=== PATIENT | female | born 1950 | race Caucasian/White ===

== ENCOUNTER → 2017-05-06 08:01 | Outpatient (CLI) | payer OTHER, SELFPAY ==
--- NOTE | 2017-05-06 08:04 | RAD_ITS ---
STUDY: X-RAY CHEST REASON FOR EXAM: Female, 66 years old. Shortness of breath and dyspnea TECHNIQUE: PA and lateral views of the chest. COMPARISON: 01/09/2017 FINDINGS: Lungs are adequately inflated. Mild interstitial edema and vascular congestion. There is no demonstrated pleural abnormality. There is mild cardiac enlargement. Normal mediastinum and jyoti. Normal visualized pulmonary arteries. Normal visualized aortic arch and descending thoracic aorta. Normal visualized thoracic spine. Normal visualized ribs, clavicles, and shoulders. There is no demonstrated abnormality of the visualized soft tissue structures of the upper abdomen. RAD/Chest PA and Lateral IMPRESSION: Mild cardiomegaly with interstitial edema Electronically Signed: Louis Velez DO at 8:31 EST Tel , Service support ,
== END ==
PROVIDERS: Family Provider Family Medicine; PCP Family Medicine; Visit Provider Physician Assistant Surgical
DX: R06.02 Shortness of breath (principal)
CPT/HCPCS: 71046

== ENCOUNTER 2017-05-12 11:04 | Observation (INO) | payer OTHER, SELFPAY ==
[2017-05-12] VITALS (9 sets, daily range): BP systolic 121–148; BP diastolic 60–83; PULSE 53–57; RESP 18–21; TEMP 36.6–36.9; O2SAT 92–95; BMI 53.3; BMI 53.4; BMI 52.4
--- NOTE | 2017-05-12 11:30 | EKG12_ITS ---
Test Reason : SOB Blood Pressure : / mmHG Vent. Rate : 050 BPM Atrial Rate : 050 BPM P-R Int : 180 ms QRS Dur : 096 ms QT Int : 636 ms P-R-T Axes : 057 009 009 degrees QTc Int : 579 ms Sinus bradycardia Low voltage QRS Poor R wave progression Nonspecific T wave abnormality Borderline ECG Confirmed by NILO TREJO, TEQUILA ([id number]), features editor KURTIS SWAIN ([id number]) on 05/13/2017 9:54:00 AM Referred By: Joon Navarro Confirmed By:TEQUILA CORCORAN MD
--- NOTE | 2017-05-12 11:31 | RAD_ITS ---
STUDY: X-RAY CHEST REASON FOR EXAM: Female, 66 years old. Dyspnea. Shortness of breath. Edema. TECHNIQUE: Frontal and lateral views of the chest. COMPARISON: May 06, 2017 FINDINGS: There is a mild diffuse interstitial pattern unchanged. Findings are still compatible with mild interstitial edema/congestive failure. There is no demonstrated pleural abnormality. There is marked globular cardiomegaly unchanged. Normal mediastinum and jyoti. Normal visualized pulmonary arteries. Normal visualized aortic arch and descending thoracic aorta. There are diffuse degenerative changes of the visualized thoracic spine. Normal visualized ribs, clavicles, and shoulders. There is no demonstrated abnormality of the visualized soft tissue structures of the upper abdomen. RAD/Chest PA and Lateral IMPRESSION: Stable cardiomegaly with diffuse interstitial pattern compatible with mild interstitial edema/congestive failure. No acute pathology. Electronically Signed: Aidan Zhou MD at 12:31 EST , Service support ,
[2017-05-12 11:49] LABS: Absolute Lymphocyte Count 1.07 X10^3/ul (0.83-4.51); Absolute Neutrophil Count 5.3 X10^3/uL (2.0-7.7); Basophil# 0.01 X10^3/uL; Basophil% 0.1 % (0-1); Eosinophil# 0.12 X10^3/uL; Eosinophils% 1.6 % (0-5); Hematocrit 31.5 % (37-47); Hemoglobin 9.5 g/dl (12.0-15.0); Lymphocyte # 1.07 X10^3/ul (4.0); Lymphocyte % 14.7 % (19-41); Mean Corp Hgb Conc 30.2 g/gl (32-36); Mean Corpuscular Hgb 25.4 pg (27.0-32.0); Mean Corpuscular Volume 84.2 fL (81-99); Mean Platelet Vol. 8.3 fl (6.2-12.0); Monocyte# 0.81 X10^3/uL; Monocyte% 11.1 % (0-10); Neutrophil # 5.25 X10^3/uL (2.7-7.7); Neutrophil % 72.2 % (47-70); Platelet Count 354 K/mm3 (150-450); RBC Distribution Width CV 14.9 % (11.6-14.6); RBC Distribution Width SD 46.1 fl (35.1-43.9); Red Blood Count 3.74 M/mm3 (4.2-5.4); White Blood Count 7.3 K/mm3 (4.4-11.0)
[2017-05-12 11:51] LABS: POSITIVE COUNT NO; POSITIVE DIFFERENTIAL NO; POSITIVE MORPHOLOGY NO
[2017-05-12 12:05] LABS: Anion Gap 7 (5-15); BUN 13 mg/dL (7-18); BUN/Creat Ratio 13.3 RATIO (10-20); Calcium,Total 8.4 mg/dL (8.5-10.1); Chloride 100 mmol/L (98-107); Creatinine, Serum 0.98 mg/dL (0.55-1.02); D-Dimer Quantitative (DVT/PE) 2.56 FEU/ug/m (0.27-0.49); EST Glomerular Filtration Rate 61 mL/min (>60); Est Glom Filt Rate - Afr Amer 73 mL/min (>60); Estimated Creatinine Clearance 50.08 ml/min; Glucose 105 mg/dL (74-106); Potassium 3.2 mmol/L (3.5-5.1); Sodium Level 137 mmol/L (136-145)
--- NOTE | 2017-05-12 12:14 | CT_ITS ---
STUDY: CTA CHEST REASON FOR EXAM: Female, 66 years old. Dyspnea. Atrial fibrillation. Status post cardiac ablation. RADIATION DOSAGE (If Supplied By Facility): CTDIvol = ( 12.25 ) mGy, DLP = ( 639.5 ) mGycm TECHNIQUE: The examination was performed with the intravenous administration of 100 ml of Isovue 370 contrast material. Post-processing of the angiographic images was performed, with multiplanar reformation and 3D reconstruction. Individualized dose optimization techniques were used for this CT. COMPARISON: None. FINDINGS: There is a 6.9 cm x 4.3 cm x 3.5 cm fluid collection in the subcutaneous tissue along the anterior lower aspect of the chest and upper abdomen. Normal enhancement of the main pulmonary artery and right and left pulmonary arteries. Normal enhancement of the bilateral peripheral pulmonary arteries. There is no demonstrated pulmonary embolism. Normal thoracic aorta and visualized great vessels. There is no demonstrated aortic dissection. Moderate sized pericardial effusion. Cardiomegaly. Normal mediastinum. Normal hilar regions. Normal visualized trachea and bronchi. The lungs are well expanded. There are small bilateral pleural effusions left worse than right with the left basilar infiltration. Mild degree of right basilar atelectasis. Normal pleura. Normal chest wall structures. There are degenerative changes of thoracic spine. Moderate sized hiatal hernia. CT/CTA Chest W/WO Contrast IMPRESSION: Bilateral pleural effusions left greater than right with left basilar atelectasis and/or infiltrate. Moderate sized pericardial effusion. Fluid collection in the subcutaneous tissues in the midline overlying the lower chest and upper abdomen most likely from recent procedure. Electronically Signed: Michael Odonnell MD at 13:23 EST Tel [phone], Service support ,
[2017-05-12 12:20] LABS: BNP,B-Type NATRIURETIC PEPTIDE 128.5 pg/mL (0-100)
--- NOTE | 2017-05-12 13:53 | ECHOD_ITS ---
Reason For Study: Dyspnea/SOB Procedure This was a 2D Doppler, Color Flow transthoracic echocardiogram. The study was technically difficult. Due to body habitus. Exam performed portable in ED. Left Ventricle Normal size and thickness. The estimated ejection fraction is 65 %. Stage 2 diastolic dysfunction. No regional wall motion abnormalities noted. Right Ventricle Normal size and thickness. Normal systolic function. Atria The left atrium is severely enlarged. The right atrium is moderately enlarged. Normal atrial septum. Mitral Valve The mitral valve is structurally normal. No prolapse or stenosis seen. Tricuspid Valve Normal tricuspid valve. Mild (1+) tricuspid valve insufficiency. Right ventricular systolic pressure estimated to be 56 mmHg. Moderate pulmonary hypertension. Aortic Valve Normal aortic valve. Trisinus/trileaflet aortic valve. Pulmonic Valve Normal pulmonic valve. Great Vessels Normal aortic root. Pericardium/Pleural Small pericardial effusion. Circumferential effusion. There are no echocardiographic indications of cardiac tamponade. MMode/2D Measurements & Calculations LVIDd: 5.5 cm IVSd: 1.0 cm LVOT diam: 2.2 cm LVIDs: 3.1 cm LVPWd: 0.99 cm LVOT area: 3.8 cm2 RVDd: 3.4 cm FS: 43.3 % Ao root diam: 2.9 cm LAV(MOD-bp): 95.3 ml LA A4 area: 26.7 cm2 LA dimension: 5.8 cm LAV(MOD-bp) Indexed: 40.4 ml/m2 LAV(MOD-sp2): 95.9 ml LAV(MOD-sp4): 95.1 ml RA A4 area: 22.1 cm2 Doppler Measurements & Calculations MV E max kike: 117.6 cm/sec Lat Peak E' Kike: 8.3 cm/sec Med Peak E' Kike: 7.8 cm/sec MV A max kike: 56.7 cm/sec E/E' lat: 14.1 E/E' med: 15.1 MV E/A: 2.1 Ao V2 max: 198.3 cm/sec LV V1 max: 125.4 cm/sec SV(LVOT): 119.5 ml Ao max P.7 mmHg LV V1 max P.3 mmHg Ao V2 mean: 125.9 cm/sec LV V1 mean P.6 mmHg Ao mean P.2 mmHg LV V1 mean: 91.5 cm/sec Ao V2 VTI: 46.3 cm LV V1 VTI: 31.7 cm STEPHEN(I,D): 2.6 cm2 STEPHEN(V,D): 2.4 cm2 PA V2 max: 121.4 cm/sec TR max kike: 343.5 cm/sec TR max P.2 mmHg Interpretation Summary The estimated ejection fraction is 65 %. Stage 2 diastolic dysfunction. The left atrium is severely enlarged. The right atrium is moderately enlarged. Mild (1+) tricuspid valve insufficiency. Right ventricular systolic pressure estimated to be 56 mmHg. Moderate pulmonary hypertension. Small pericardial effusion. Circumferential effusion. There are no echocardiographic indications of cardiac tamponade. Compared to echo report dated 12/22/2015, LV function has remained the same, small circumferential pericardial effusion is now noted, and RVSP has increased from 45 to 56 mm Hg. Ordering Physician: Lonnie Bradford Referring Physician: Joon Navarro Performed By: Nila Castellanos RDCS, RVT
--- NOTE | 2017-05-12 15:30 | ED.VISSUMM ---
- ER Visit Summary Date of Service: 05/12/17 Chief Complaint: Dyspnea, dyspnea on exertion, pedal edema and COPD History of Present Illness: The patient is a 66 F who presents with dyspnea, dyspnea on exertion orthopnea and pedal edema for the past week. She does have history of COPD. She denies fever, chills night sweats. Denies any visual, ocular or auditory symptoms. She denies any rhinorrhea, sore throat or ear pain. She has complained of left-sided chest pain. She also complains of palpitations. She denies abdominal pain, nausea, vomiting or diarrhea. She denies dysuria, frequency, urgency or hematuria. She denies myalgias arthralgias. She does complain of generalized weakness. Past medical history of CHF, hypertension, atrial fibrillation, hiatal hernia with Foley's esophagitis, obstructive sleep apnea, hypothyroidism and obesity with a BMI of 53. She had a cardiac catheterization in February 2017 which she reports is unremarkable. Physical Examination: Patient vitals are remarkable for heart rate of 55. She is tachypnic. She not hypoxic. She is obese. HEENT exam is unremarkable. Lungs reveal rales bilaterally with diminished breath sounds noted bilaterally. Abdomen is soft nontender. She does have edema both lower extremities. Neuro exam is nonfocal. Test Results: EKG reveals a sinus rhythm rate of 50 with low voltage which may be secondary to body habitus. Chest x-ray reveals CHF with bilateral pleural effusions. Because patient had an elevated d-dimer with abrupt onset of shortness of breath a CTA was obtained which reveals bilateral pleural effusions, CHF and pericardial effusion. Because the patient has a pericardial effusion which is not insignificant in size a echo was obtained. Echo reveals minimal pericardial effusion. H&H is 9.5 and 31.5. Potassium 3.2. Emergency Department Course and Treatment: To evaluate patient's dyspnea with history of COPD and abrupt onset of shortness of breath need to be concerned about pulmonary embolus, COPD exacerbation, CHF exacerbation. Treatment Plan: Lasix 40 mg IV push. Case discussed with Dr. Gilliam since he looked at the echo. He will inform Dr. Dewey since Dr. Dewey is her electrical systems drafter. Disposition: Admit to PCU Impression: Line 1. Exacerbation of CHF 2. Bilateral pleural effusion 3. Anasarca 4. Small pericardial effusion 5. History of hypertension 6. History of obstructive sleep apnea 7. History of hypothyroidism 7. Morbid obesity, BMI 53 9. History of anemia chronic illness 10. High risk medication, Xarelto This note was generated with Tippr dictation software. It may contain incorrect words, spelling, and punctuation that were not noted in review of the chart prior to signing ED Disposition - Plan for ED Patient: Chief Complaint: Shortness of Breath Referrals: José Miguel Roy MD [Primary Care Provider] -
[2017-05-12] MEDS: Furosemide 40 MG/4 ML Vial IV ×2 (15:31→21:34)
--- NOTE | 2017-05-12 15:37 | ED.DCSUM_ITS ---
- ER Visit Summary Date of Service: 05/12/17 Chief Complaint: Dyspnea, dyspnea on exertion, pedal edema and COPD History of Present Illness: The patient is a 66 F who presents with dyspnea, dyspnea on exertion orthopnea and pedal edema for the past week. She does have history of COPD. She denies fever, chills night sweats. Denies any visual, ocular or auditory symptoms. She denies any rhinorrhea, sore throat or ear pain. She has complained of left-sided chest pain. She also complains of palpitations. She denies abdominal pain, nausea, vomiting or diarrhea. She denies dysuria, frequency, urgency or hematuria. She denies myalgias arthralgias. She does complain of generalized weakness. Past medical history of CHF, hypertension, atrial fibrillation, hiatal hernia with Foley's esophagitis, obstructive sleep apnea, hypothyroidism and obesity with a BMI of 53. She had a cardiac catheterization in February 2017 which she reports is unremarkable. Physical Examination: Patient vitals are remarkable for heart rate of 55. She is tachypnic. She not hypoxic. She is obese. HEENT exam is unremarkable. Lungs reveal rales bilaterally with diminished breath sounds noted bilaterally. Abdomen is soft nontender. She does have edema both lower extremities. Neuro exam is nonfocal. Test Results: EKG reveals a sinus rhythm rate of 50 with low voltage which may be secondary to body habitus. Chest x-ray reveals CHF with bilateral pleural effusions. Because patient had an elevated d-dimer with abrupt onset of shortness of breath a CTA was obtained which reveals bilateral pleural effusions , CHF and pericardial effusion. Because the patient has a pericardial effusion which is not insignificant in size a echo was obtained. Echo reveals minimal pericardial effusion. H&H is 9.5 and 31.5. Potassium 3.2. Emergency Department Course and Treatment: To evaluate patient's dyspnea with history of COPD and abrupt onset of shortness of breath need to be concerned about pulmonary embolus, COPD exacerbation, CHF exacerbation. Treatment Plan: Lasix 40 mg IV push. Case discussed with Dr. Gilliam since he looked at the echo. He will inform Dr. Dewey since Dr. Dewey is her film writer. Disposition: Admit to PCU Impression: Line 1. Exacerbation of CHF 2. Bilateral pleural effusion 3. Anasarca 4. Small pericardial effusion 5. History of hypertension 6. History of obstructive sleep apnea 7. History of hypothyroidism 7. Morbid obesity, BMI 53 9. History of anemia chronic illness 10. High risk medication, Xarelto This note was generated with Libr[employer] dictation software. It may contain incorrect words, spelling, and punctuation that were not noted in review of the chart prior to signing ED Disposition - Plan for ED Patient: Chief Complaint: Shortness of Breath Referrals: José Miguel Roy MD [Primary Care Provider] -
[2017-05-12] MEDS: Carvedilol 12.5 MG Tablet PO (21:31)
[2017-05-12] MEDS: Rivaroxaban 20 MG Tablet PO (21:31)
[2017-05-12] MEDS: Pantoprazole Sodium 40 MG Tablet PO (21:31)
--- NOTE | 2017-05-12 22:05 | PCM.HP.STD ---
Problem List (1) Shortness of breath Status: Acute History of Present Illness Date of Admission: 05/12/17 Chief Complaint: Shortness of breath The patient is a 66 year old F was seen in the emergency room at [facility] with chief complaint of increased shortness of breath. Patient denied any chest pain, she has had a history of atrial fibrillation in the past and has had an ablation last year, she follows up with Dr. Dewey of cardiology. Patient states that the shortness of breath is been for the last week, it is mainly on exertion. Patient denies any nausea, denies any jaw pain, neck pain, or arm pain. Workup in the emergency room included a chest x-ray which showed interstitial edema or mild CHF, patient's d-dimer was elevated and she had a CTA of her chest performed which showed bilateral pleural effusions left greater than right, a pericardial effusion, and a fluid collection in the subcutaneous tissues of the abdominal wall and lower chest wall area. Emergency room physician contacted cardiology who performed an echocardiogram in the emergency room to assess the pericardial effusion, it was relayed to me from the emergency room doctor that the casting inspector stated the pericardial effusion was not severe. Patient was examined, breath sounds are distant bilaterally but the patient did not appear to be in respiratory distress, she was on room air. I did not ambulate the patient on room air. Patient will be placed into observation status for acute CHF, in reviewing the patient's medical records, patient had a heart catheterization last February which showed her to have a preserved ejection fraction of 60%. Patient will be placed on IV Lasix, I will have's general surgery see her concerning her fluid collection in her abdomen-I am not sure what to make of this. Do not feel it is necessary at this time to have cardiology consult on this patient. Past Medical History Past Medical History (Chronic Problems): Chronic Problems (Last Reviewed 05/06/17 @ 07:59 by Kimberlee Desai) Edema (Chronic) Hypokalemia (Chronic) S/P left atrial appendage ligation (Chronic) 02/25/2017 @ [facility] with Dr. Fierro S/P ablation of atrial fibrillation (Chronic) Convergent ablation 02/25/[address] @ [facility] [address] Fierro; Atrial fibrillation (Chronic) ablation 03/03/2017 Anemia (Chronic) HTN (hypertension) (Chronic) GERD (gastroesophageal reflux disease) (Chronic) Hiatal hernia (Chronic) Foley esophagus (Chronic) Morbid obesity with BMI of 45.0-49.9, adult (Chronic) Allergies Latex, Natural Rubber Adverse Reaction (Intermediate, Verified 05/12/17 11:06) UNKNOWN olmesartan [From Benicar] Adverse Reaction (Verified 05/12/17 11:06) Itching Home Medications: Ambulatory Orders Medication Instructions Recorded Amlodipine [Norvasc] 5 mg PO DAILY 04/21/13 Fluoxetine [Prozac] 20 mg PO DAILY 04/21/13 Levothyroxine [Synthroid] 88 mcg PO DAILY 04/21/13 Pantoprazole Sodium [Protonix] 40 mg PO BID 04/21/13 Rivaroxaban [Xarelto] 20 mg PO QHS 01/18/16 Magnesium Oxide [Mag-Ox 400] 400 mg PO DAILY 01/13/17 amiodarone 200 mg tablet 200 mg PO DAILY 04/04/17 cholecalciferol (vitamin D3) 2,000 2,000 unit PO DAILY 04/04/17 unit capsule furosemide 40 mg tablet 80 mg PO DAILY tab 04/04/17 potassium chloride ER 20 mEq 40 meq PO BID tab 04/04/17 tablet,extended release Carvedilol [Coreg] 12.5 mg PO BID 05/12/17 Furosemide [Lasix] 40 mg PO DINNER 05/12/17 Surgical History: cholecystectomy, herniorrhaphy, hysterectomy, - - x 3. Psychiatric History: No pertinent psych hx BOLT LOADER History: No pertinent BOLT LOADER history Lives: Spouse/ Significant Other Smoking Status: Never smoker Tobacco Use: Non-smoker Alcohol: None Drugs: None - *Family History Maternal History Items: Heart Disease - CHF Paternal History Items: Stroke Review of Systems Constitutional: Reports: Fatigue. Denies: Anorexia, Chills, Fever, Night Sweats, Malaise, Weakness, Weight Change Eyes: Denies: Blurred vision, Cataracts, Conjunctivae Inflammation, Double vision, Drainage HEENT: Denies: Difficulty Swallowing, Dysphasia, Ear Pain, Eye Pain, Hearing Changes, Nasal bleeding, Nasal Congestion, Post Nasal Drip, Sinus Drainage, Sore Throat Cardiovascular: Reports: Edema - Lower leg edema. Denies: Chest Pain, Claudication, Chest Pressure, Chest Tightness, Heaviness, Orthopnea, Palpitations, Paroxysmal Noc. Dyspnea, Syncope Respiratory: Reports: Shortness of Breath, Shortness of breath upon exertion. Denies: Cough, Hemoptysis, Pleuritic Pain, Shortness of breath at rest, Sputum production, Wheezing Gastrointestinal: Denies: Abdominal Pain, Constipation, Diarrhea, Hematemesis, Hematochezia, Nausea, Melena, Vomiting Genitourinary: Denies: Dysuria, Frequency, Hematuria, Hesitancy, Incontinence, Nocturia, Urgency Gynecological: Denies: Breast symptoms Musculoskeletal: Denies: Back Pain, Foot Pain, Hand Pain, Joint Pain, Joint stiffness, Joint swelling, Joint Tenderness, Leg Pain Skin: Denies: Dryness, Pruritis, Rash Neurological: Denies: Blurred vision, Double vision, Change in Speech, Slurred speech, Difficulty swallowing, Focal weakness, Headaches, Incoordination, Numbness, Tingling Psychiatric: Denies: Anxiety, Depression, Homicidal Ideations, Suicidal Ideations Endocrine: Denies: Change in Body Habitus, Heat/ Cold Intolerance, Polydipsia, Polyuria Hematologic/ Lymphatic: Denies: Adenopathy, Anemia, Easy Bruising, Easy Bleeding, Petechiae, Purpura VTE Information - Inpt Only VTE Present on Admission: No VTE Mechan Device Prophylaxis: None VTE Pharm Prophylaxis ordered?: No Reason prophylaxis not ordered:: Medical Contraindication - On Xarelto Patient Problems: Active and Suspected Problems (Last Reviewed 05/06/17 @ 07:59 by Kimberlee Desai) Shortness of breath (Acute) - Physical Exam General: Alert, Oriented x3, Cooperative, No apparent distress, Well developed, Well nourished HEENT: Atraumatic, PERRLA, EOMI, Normocephalic Oral: Moist Mucosa Neck: Supple, No JVD, Negative Carotid Bruits, No Nuchal Rigidity, Trachea Midline, Thyroid Normal Size and Texture Lungs: Clear to auscultation, No rhonchi, No wheeze, No rales, Diminished Cardiovascular: Regular rate, Regular Rhythm, Normal S1, Normal S2, No murmurs, No Ectopic Activity, PMI Normal, No rub noted, No Gallop Abdomen: Bowel Sounds Present, Soft, Non Tender, Non-Distended, Obese, No hernias noted Extremities: No clubbing, Capillary Refill Less than 3 Seconds, Edema - Generalized lower leg edema is noted bilaterally Skin: No rashes, No breakdown Musculoskeletal: No Tenderness to Palpation of Joints or Extremities Neurological: Cranial nerves II-XII grossly intact, Neuro grossly intact, Muscle tone normal, Sensory exam intact to light touch and pain Psych/Mental Status: Normal Affect, Appropriate, Alert and oriented to time, place, person, mood and affect Vital Signs Temp Pulse Resp BP Pulse Ox 98.4 F 56 L 18 142/60 H 93 05/12/17 21:10 05/12/17 21:10 05/12/17 21:10 05/12/17 21:10 05/12/17 21:10 Oxygen Delivery Method Room Air Weight: 138.7 kg Body Mass Index (BMI) 52.4 Intake and Output for Last 24 Hours 05/10/17 05/11/17 05/12/17 23:59 23:59 23:59 Intake Total 240 / 240 Balance 240 / 240 Assessment/Plan Active and Suspected Problems (Last Reviewed 05/06/17 @ 07:59 by Kimberlee Desai) Shortness of breath (Acute) #1 diastolic congestive heart failure-mild, patient will be placed in observation status on PCU, she will be given IV Lasix, chest x-ray will be repeated tomorrow, echocardiogram was obtained in the emergency room and results will be available tomorrow. #2 fluid collection anterior abdomen/ lower chest wall-I am unsure as to what is causing this, general surgery will be consulted, I do not know if it is possible that her Maze procedure performed in February 2017 could have resulted in this fluid collection #3 hypokalemia-patient will be given oral potassium, labs will be rechecked #4 past history of atrial fibrillation-now in sinus rhythm #5 hypertension #6 morbid obesity Code Visit OBSV E&M: 73354 Initial observation care L3
--- NOTE | 2017-05-12 22:08 | HP.PCM_ITS ---
Problem List (1) Shortness of breath Status: Acute History of Present Illness Date of Admission: 05/12/17 Chief Complaint: Shortness of breath The patient is a 66 year old F was seen in the emergency room at [facility] with chief complaint of increased shortness of breath. Patient denied any chest pain, she has had a history of atrial fibrillation in the past and has had an ablation last year, she follows up with Dr. Dewey of cardiology. Patient states that the shortness of breath is been for the last week, it is mainly on exertion. Patient denies any nausea, denies any jaw pain , neck pain, or arm pain. Workup in the emergency room included a chest x-ray which showed interstitial edema or mild CHF, patient's d-dimer was elevated and she had a CTA of her chest performed which showed bilateral pleural effusions left greater than right, a pericardial effusion, and a fluid collection in the subcutaneous tissues of the abdominal wall and lower chest wall area. Emergency room physician contacted cardiology who performed an echocardiogram in the emergency room to assess the pericardial effusion, it was relayed to me from the emergency room doctor that the service tester stated the pericardial effusion was not severe. Patient was examined, breath sounds are distant bilaterally but the patient did not appear to be in respiratory distress, she was on room air. I did not ambulate the patient on room air. Patient will be placed into observation status for acute CHF, in reviewing the patient's medical records, patient had a heart catheterization last February which showed her to have a preserved ejection fraction of 60%. Patient will be placed on IV Lasix, I will have's general surgery see her concerning her fluid collection in her abdomen-I am not sure what to make of this. Do not feel it is necessary at this time to have cardiology consult on this patient. Past Medical History Past Medical History (Chronic Problems): Chronic Problems (Last Reviewed 05/06/17 @ 07:59 by Kimberlee Desai) Edema (Chronic) Hypokalemia (Chronic) S/P left atrial appendage ligation (Chronic) 02/25/2017 @ [facility] with Dr. Fierro S/P ablation of atrial fibrillation (Chronic) Convergent ablation 02/25/[address] @ [facility] [address] Fierro; Atrial fibrillation (Chronic) ablation 03/03/2017 Anemia (Chronic) HTN (hypertension) (Chronic) GERD (gastroesophageal reflux disease) (Chronic) Hiatal hernia (Chronic) Foley esophagus (Chronic) Morbid obesity with BMI of 45.0-49.9, adult (Chronic) Allergies Latex, Natural Rubber Adverse Reaction (Intermediate, Verified 05/12/17 11:06) UNKNOWN olmesartan [From Benicar] Adverse Reaction (Verified 05/12/17 11:06) Itching Home Medications: Ambulatory Orders Medication Instructions Recorded Amlodipine [Norvasc] 5 mg PO DAILY 04/21/13 Fluoxetine [Prozac] 20 mg PO DAILY 04/21/13 Levothyroxine [Synthroid] 88 mcg PO DAILY 04/21/13 Pantoprazole Sodium [Protonix] 40 mg PO BID 04/21/13 Rivaroxaban [Xarelto] 20 mg PO QHS 01/18/16 Magnesium Oxide [Mag-Ox 400] 400 mg PO DAILY 01/13/17 amiodarone 200 mg tablet 200 mg PO DAILY 04/04/17 cholecalciferol (vitamin D3) 2,000 2,000 unit PO DAILY 04/04/17 unit capsule furosemide 40 mg tablet 80 mg PO DAILY tab 04/04/17 potassium chloride ER 20 mEq 40 meq PO BID tab 04/04/17 tablet,extended release Carvedilol [Coreg] 12.5 mg PO BID 05/12/17 Furosemide [Lasix] 40 mg PO DINNER 05/12/17 Surgical History: cholecystectomy, herniorrhaphy, hysterectomy, - - x 3. 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 Denies: Anorexia, Chills, Fever, Night Sweats , Malaise, Weakness, Weight Change Eyes: Denies: Blurred vision, Cataracts, Conjunctivae Inflammation, Double vision, Drainage HEENT: Denies: Difficulty Swallowing, Dysphasia, Ear Pain, Eye Pain, Hearing Changes, Nasal bleeding, Nasal Congestion, Post Nasal Drip, Sinus Drainage, Sore Throat Cardiovascular: Reports: Edema - Lower leg edema. Denies: Chest Pain, Claudication, Chest Pressure, Chest Tightness, Heaviness, Orthopnea, Palpitations, Paroxysmal Noc. Dyspnea, Syncope Respiratory: Reports: Shortness of Breath, Shortness of breath upon exertion. Denies: Cough, Hemoptysis, Pleuritic Pain, Shortness of breath at rest, Sputum production, Wheezing Gastrointestinal: Denies: Abdominal Pain, Constipation, Diarrhea, Hematemesis, Hematochezia, Nausea, Melena, Vomiting Genitourinary: Denies: Dysuria, Frequency, Hematuria, Hesitancy, Incontinence, Nocturia, Urgency Gynecological: Denies: Breast symptoms Musculoskeletal: Denies: Back Pain, Foot Pain, Hand Pain, Joint Pain, Joint stiffness, Joint swelling, Joint Tenderness, Leg Pain Skin: Denies: Dryness, Pruritis, Rash Neurological: Denies: Blurred vision, Double vision, Change in Speech, Slurred speech, Difficulty swallowing, Focal weakness, Headaches, Incoordination, Numbness, Tingling Psychiatric: Denies: Anxiety, Depression, Homicidal Ideations, Suicidal Ideations Endocrine: Denies: Change in Body Habitus, Heat/ Cold Intolerance, Polydipsia, Polyuria Hematologic/ Lymphatic: Denies: Adenopathy, Anemia, Easy Bruising, Easy Bleeding , Petechiae, Purpura VTE Information - Inpt Only VTE Present on Admission: No VTE Mechan Device Prophylaxis: None VTE Pharm Prophylaxis ordered?: No Reason prophylaxis not ordered:: Medical Contraindication - On Xarelto Patient Problems: Active and Suspected Problems (Last Reviewed 05/06/17 @ 07:59 by Kimberlee Desai) Shortness of breath (Acute) - Physical Exam General: Alert, Oriented x3, Cooperative, No apparent distress, Well developed, Well nourished HEENT: Atraumatic, PERRLA, EOMI, Normocephalic Oral: Moist Mucosa Neck: Supple, No JVD, Negative Carotid Bruits, No Nuchal Rigidity, Trachea Midline, Thyroid Normal Size and Texture Lungs: Clear to auscultation, No rhonchi, No wheeze, No rales, Diminished Cardiovascular: Regular rate, Regular Rhythm, Normal S1, Normal S2, No murmurs, No Ectopic Activity, PMI Normal, No rub noted, No Gallop Abdomen: Bowel Sounds Present, Soft, Non Tender, Non-Distended, Obese, No hernias noted Extremities: No clubbing, Capillary Refill Less than 3 Seconds, Edema - Generalized lower leg edema is noted bilaterally Skin: No rashes, No breakdown Musculoskeletal: No Tenderness to Palpation of Joints or Extremities Neurological: Cranial nerves II-XII grossly intact, Neuro grossly intact, Muscle tone normal, Sensory exam intact to light touch and pain Psych/Mental Status: Normal Affect, Appropriate, Alert and oriented to time, place, person, mood and affect Vital Signs Temp Pulse Resp BP Pulse Ox 98.4 F 56 L 18 142/60 H 93 05/12/17 21:10 05/12/17 21:10 05/12/17 21:10 05/12/17 21:10 05/12/17 21:10 Oxygen Delivery Method Room Air Weight: 138.7 kg Body Mass Index (BMI) 52.4 Intake and Output for Last 24 Hours 05/10/17 05/11/17 05/12/17 23:59 23:59 23:59 Intake Total 240 / 240 Balance 240 / 240 Assessment/Plan Active and Suspected Problems (Last Reviewed 05/06/17 @ 07:59 by Kimberlee Desai) Shortness of breath (Acute) #1 diastolic congestive heart failure-mild, patient will be placed in observation status on PCU, she will be given IV Lasix, chest x-ray will be repeated tomorrow, echocardiogram was obtained in the emergency room and results will be available tomorrow. #2 fluid collection anterior abdomen/ lower chest wall-I am unsure as to what is causing this, general surgery will be consulted, I do not know if it is possible that her Maze procedure performed in February 2017 could have resulted in this fluid collection #3 hypokalemia-patient will be given oral potassium, labs will be rechecked #4 past history of atrial fibrillation-now in sinus rhythm #5 hypertension #6 morbid obesity Code Visit OBSV E&M: 62879 Initial observation care L3
[2017-05-13] VITALS (10 sets, daily range): BP systolic 108–160; BP diastolic 44–65; PULSE 56–79; RESP 16–18; TEMP 36.7–37.2; O2SAT 93–95
[2017-05-13] MEDS: Acetaminophen 325 MG Tablet 650 MG PO ×2 (03:25→15:39)
--- NOTE | 2017-05-13 05:55 | RAD_ITS ---
STUDY: X-RAY CHEST REASON FOR EXAM: Female, 66 years old. Shortness of breath. TECHNIQUE: PA and lateral views of the chest. COMPARISON: Comparison is made with prior study dated May 12, 2017. FINDINGS: EKG electrodes are seen. Stable mild degree of increased interstitial markings in both lungs. Stable atelectasis and/or infiltrate in the posterior medial segment of the left lower lobe. There is blunting of both costophrenic angles posteriorly slightly worse on the left side. There is moderate cardiac enlargement. Recent CT scan demonstrated a pericardial effusion. A metallic clip is seen in the region of the left atrium. Normal mediastinum and jyoti. Normal visualized pulmonary arteries. There is atherosclerotic tortuosity of the aortic arch and descending thoracic aorta. There are loss of height of mid dorsal vertebrae. Degenerative changes of the visualized thoracic spine. Normal visualized ribs, clavicles, and shoulders. There is no demonstrated abnormality of the visualized soft tissue structures of the upper abdomen. RAD/Chest PA and Lateral IMPRESSION: Cardiomegaly. Stable increased interstitial markings in both lungs suggest some mild this is unchanged. Electronically Signed: Michael Odonnell MD at 8:43 EST Tel [phone], Service support ,
[2017-05-13 06:07] LABS: Anion Gap 9 (5-15); BUN 12 mg/dL (7-18); BUN/Creat Ratio 12.2 RATIO (10-20); Calcium,Total 8.3 mg/dL (8.5-10.1); Chloride 102 mmol/L (98-107); Creatinine, Serum 0.98 mg/dL (0.55-1.02); EST Glomerular Filtration Rate 60 mL/min (>60); Est Glom Filt Rate - Afr Amer 73 mL/min (>60); Estimated Creatinine Clearance 50.08 ml/min; Glucose 107 mg/dL (74-106); Potassium 3.5 mmol/L (3.5-5.1); Sodium Level 140 mmol/L (136-145)
[2017-05-13] MEDS: 0.9% NaCl Peripheral Flush Adult/Peds IV ×3 (06:48→20:11)
[2017-05-13] MEDS: Levothyroxine 88 MCG Tablet PO (06:48)
[2017-05-13] MEDS: Furosemide 40 MG/4 ML Vial IV ×2 (06:48→17:07)
[2017-05-13] MEDS: Amiodarone 200 MG Tablet PO (09:33)
[2017-05-13] MEDS: Carvedilol 12.5 MG Tablet PO ×2 (09:33→22:23)
[2017-05-13] MEDS: amLODIPine 5 MG Tablet PO (09:34)
[2017-05-13] MEDS: Pantoprazole Sodium 40 MG Tablet PO ×2 (09:34→22:23)
[2017-05-13] MEDS: FLUoxetine 20 MG Capsule PO (09:34)
--- NOTE | 2017-05-13 12:26 | PCM.PN.HOSP ---
Patient Problems: Active and Suspected Problems (Last Reviewed 05/06/17 @ 07:59 by Kimberlee Desai) Shortness of breath (Acute) Vitals/I&O's: Vital Signs Temp Pulse Resp BP Pulse Ox 98.1 F 56 L 18 119/55 L 94 05/13/17 09:10 05/13/17 11:01 05/13/17 09:10 05/13/17 09:10 05/13/17 09:10 Oxygen Delivery Method Room Air Weight: 139 kg Body Mass Index (BMI) 52.4 Intake and Output for Last 24 Hours 05/11/17 05/12/17 05/13/17 23:59 23:59 23:59 Intake Total 720 / 720 240 / 240 Output Total 650 / 650 200 / 200 Balance 70 / 70 40 / 40 Laboratory Results 05/13/17 05:45: Sodium 140, Potassium 3.5, Chloride 102, Carbon Dioxide 29.0, Anion Gap 9, BUN 12, Creatinine 0.98, Estim Creat Clear Calc 50.08, Est GFR (MDRD) Af Amer 73, Est GFR (MDRD) Non-Af 60, BUN/Creatinine Ratio 12.2, Glucose 107 H, Calcium 8.3 L Current Medications Acetaminophen (Tylenol) 650 mg PO Q6H PRN PRN PRN Reason: PAIN Last Admin: 05/13/17 03:25 Dose: 650 mg Amiodarone HCl (Cordarone) 200 mg PO DAILY [facility] Last Admin: 05/13/17 09:33 Dose: 200 mg Amlodipine Besylate (Norvasc) 5 mg PO DAILY [facility] Last Admin: 05/13/17 09:34 Dose: 5 mg Carvedilol (Coreg) 12.5 mg PO BID [facility] Last Admin: 05/13/17 09:33 Dose: 12.5 mg Doxycycline Monohydrate (Doxycycline) 100 mg PO BID [facility] Fluoxetine HCl (Prozac) 20 mg PO DAILY [facility] Last Admin: 05/13/17 09:34 Dose: 20 mg Furosemide (Lasix) 40 mg IV BID@1000,1800 [facility] Levothyroxine Sodium (Synthroid) 88 mcg PO DAILY@0600 [facility] Last Admin: 05/13/17 06:48 Dose: 88 mcg Methylprednisolone (Solu-Medrol) 40 mg IV Q8 [facility] Pantoprazole Sodium (Protonix) 40 mg PO BID [facility] Last Admin: 05/13/17 09:34 Dose: 40 mg Potassium Chloride (K-Dur) 40 meq PO BID [facility] Last Admin: 05/13/17 09:33 Dose: 40 meq Rivaroxaban (Xarelto) 20 mg PO QHS [facility] Last Admin: 05/12/17 21:31 Dose: 20 mg Sodium Chloride () 5 - 30 ml IV UD PRN PRN Reason: SALINE FLUSH Last Admin: 05/13/17 06:48 Dose: 10 ml Assessment/Plan Active and Suspected Problems (Last Reviewed 05/06/17 @ 07:59 by Kimberlee Desai) Shortness of breath (Acute)
--- NOTE | 2017-05-13 14:41 | CHAPLAIN ---
Type of Pastoral Visit _x__ Initial Visit ___ Follow-up Visit ___ On-call Visit ___ General Patient Visit ___ Spiritual Assessment ___ Family Conference ___ Bereavement ___ Rapid Response ___ Code Blue ___ Other (describe below) Pastoral Care Referral From _x__ Patient ___ Family ___ Nurse ___ Physician ___ Vocational Counselor ___ Respiratory Therapy Director ___ Other (describe below) Sacrament/Intervention _x__ Active listening ___ Anointing ___ Methodist ___ Bereavement ___ Communion ___ Angélica exploration ___ ___ Life review ___ Prayer ___ Reconciliation ___ Sacrament of Sick ___ Supportive presence ___ Wedding ___ Other (describe below) Pastoral Comments
--- NOTE | 2017-05-13 16:52 | PCM.PN.HOSP ---
Patient Problems: Active and Suspected Problems (Last Reviewed 05/06/17 @ 07:59 by Kimberlee Desai) Shortness of breath (Acute) Subjective: CC: shortness of breath. 66-year-old female who presented with progressive dyspnea, and showed pulmonary vascular congestion, bilateral pleural effusion as well as well as fluid collection anterior abdomen/ lower chest wall. She is receiving IV Lasix and reports improved dyspnea at rest but is worse with exertion. Vitals/I&O's: Vital Signs Temp Pulse Resp BP Pulse Ox 99.0 F 61 18 136/44 H 93 05/13/17 15:10 05/13/17 15:10 05/13/17 15:10 05/13/17 15:10 05/13/17 15:10 Oxygen Delivery Method Room Air Weight: 139 kg Body Mass Index (BMI) 52.4 Intake and Output for Last 24 Hours 05/11/17 05/12/17 05/13/17 23:59 23:59 23:59 Intake Total 720 / 720 600 / 600 Output Total 650 / 650 1500 / 1500 Balance 70 / 70 -900 / -900 General: Alert, Oriented x3 HEENT: Atraumatic Oral: Moist Mucosa Neck: Supple, No JVD Lungs: Clear to auscultation Cardiovascular: Regular rate, Normal S1, Normal S2 Abdomen: Bowel Sounds Present, Soft, Non Tender Laboratory Results 05/13/17 05:45: Sodium 140, Potassium 3.5, Chloride 102, Carbon Dioxide 29.0, Anion Gap 9, BUN 12, Creatinine 0.98, Estim Creat Clear Calc 50.08, Est GFR (MDRD) Af Amer 73, Est GFR (MDRD) Non-Af 60, BUN/Creatinine Ratio 12.2, Glucose 107 H, Calcium 8.3 L Current Medications Acetaminophen (Tylenol) 650 mg PO Q6H PRN PRN PRN Reason: PAIN Last Admin: 05/13/17 15:39 Dose: 650 mg Amiodarone HCl (Cordarone) 200 mg PO DAILY [facility] Last Admin: 05/13/17 09:33 Dose: 200 mg Amlodipine Besylate (Norvasc) 5 mg PO DAILY [facility] Last Admin: 05/13/17 09:34 Dose: 5 mg Carvedilol (Coreg) 12.5 mg PO BID [facility] Last Admin: 05/13/17 09:33 Dose: 12.5 mg Fluoxetine HCl (Prozac) 20 mg PO DAILY [facility] Last Admin: 05/13/17 09:34 Dose: 20 mg Furosemide (Lasix) 40 mg IV BID@1000,1800 [facility] Levothyroxine Sodium (Synthroid) 88 mcg PO DAILY@0600 [facility] Last Admin: 05/13/17 06:48 Dose: 88 mcg Pantoprazole Sodium (Protonix) 40 mg PO BID [facility] Last Admin: 05/13/17 09:34 Dose: 40 mg Potassium Chloride (K-Dur) 40 meq PO BID [facility] Last Admin: 05/13/17 09:33 Dose: 40 meq Rivaroxaban (Xarelto) 20 mg PO QHS [facility] Last Admin: 05/12/17 21:31 Dose: 20 mg Sodium Chloride () 5 - 30 ml IV UD PRN PRN Reason: SALINE FLUSH Last Admin: 05/13/17 06:48 Dose: 10 ml Assessment/Plan Active and Suspected Problems (Last Reviewed 05/06/17 @ 07:59 by Kimberlee Desai) Shortness of breath (Acute) 1 Dyspnea ; likely due to acute diastolic congestive , continue on IV Lasix. 2. Pericardial effusion; will obtain a limited echocardiogram, the patient wants me to consult Dr. Dewey who is her chiropractic assistant. 3. Fluid collection anterior abdomen/ lower chest wall; likely from her procedure, general surgeon consulted. 4. History of atrial fibrillation status post maze procedure the patient remains in sinus rhythm. 5 morbid obesity; loss recommended. 6. DVT Prophylaxis; the patient is on Xarelto.
--- NOTE | 2017-05-13 16:56 | PN_ITS ---
Patient Problems: Active and Suspected Problems (Last Reviewed 05/06/17 @ 07:59 by Kimberlee Desai) Shortness of breath (Acute) Subjective: CC: shortness of breath. 66-year-old female who presented with progressive dyspnea, and showed pulmonary vascular congestion, bilateral pleural effusion as well as well as fluid collection anterior abdomen/ lower chest wall. She is receiving IV Lasix and reports improved dyspnea at rest but is worse with exertion. Vitals/I&O's: Vital Signs Temp Pulse Resp BP Pulse Ox 99.0 F 61 18 136/44 H 93 05/13/17 15:10 05/13/17 15:10 05/13/17 15:10 05/13/17 15:10 05/13/17 15:10 Oxygen Delivery Method Room Air Weight: 139 kg Body Mass Index (BMI) 52.4 Intake and Output for Last 24 Hours 05/11/17 05/12/17 05/13/17 23:59 23:59 23:59 Intake Total 720 / 720 600 / 600 Output Total 650 / 650 1500 / 1500 Balance 70 / 70 -900 / -900 General: Alert, Oriented x3 HEENT: Atraumatic Oral: Moist Mucosa Neck: Supple, No JVD Lungs: Clear to auscultation Cardiovascular: Regular rate, Normal S1, Normal S2 Abdomen: Bowel Sounds Present, Soft, Non Tender Laboratory Results 05/13/17 05:45: Sodium 140, Potassium 3.5, Chloride 102, Carbon Dioxide 29.0, Anion Gap 9, BUN 12, Creatinine 0.98, Estim Creat Clear Calc 50.08, Est GFR ( MDRD) Af Amer 73, Est GFR (MDRD) Non-Af 60, BUN/Creatinine Ratio 12.2, Glucose 107 H, Calcium 8.3 L Current Medications Acetaminophen (Tylenol) 650 mg PO Q6H PRN PRN PRN Reason: PAIN Last Admin: 05/13/17 15:39 Dose: 650 mg Amiodarone HCl (Cordarone) 200 mg PO DAILY [facility] Last Admin: 05/13/17 09:33 Dose: 200 mg Amlodipine Besylate (Norvasc) 5 mg PO DAILY [facility] Last Admin: 05/13/17 09:34 Dose: 5 mg Carvedilol (Coreg) 12.5 mg PO BID [facility] Last Admin: 05/13/17 09:33 Dose: 12.5 mg Fluoxetine HCl (Prozac) 20 mg PO DAILY [facility] Last Admin: 05/13/17 09:34 Dose: 20 mg Furosemide (Lasix) 40 mg IV BID@1000,1800 [facility] Levothyroxine Sodium (Synthroid) 88 mcg PO DAILY@0600 [facility] Last Admin: 05/13/17 06:48 Dose: 88 mcg Pantoprazole Sodium (Protonix) 40 mg PO BID [facility] Last Admin: 05/13/17 09:34 Dose: 40 mg Potassium Chloride (K-Dur) 40 meq PO BID [facility] Last Admin: 05/13/17 09:33 Dose: 40 meq Rivaroxaban (Xarelto) 20 mg PO QHS [facility] Last Admin: 05/12/17 21:31 Dose: 20 mg Sodium Chloride () 5 - 30 ml IV UD PRN PRN Reason: SALINE FLUSH Last Admin: 05/13/17 06:48 Dose: 10 ml Assessment/Plan Active and Suspected Problems (Last Reviewed 05/06/17 @ 07:59 by Kimberlee Desai) Shortness of breath (Acute) 1 Dyspnea ; likely due to acute diastolic congestive , continue on IV Lasix. 2. Pericardial effusion; will obtain a limited echocardiogram, the patient wants me to consult Dr. Dewey who is her adapted physical education teacher. 3. Fluid collection anterior abdomen/ lower chest wall; likely from her procedure, general surgeon consulted. 4. History of atrial fibrillation status post maze procedure the patient remains in sinus rhythm. 5 morbid obesity; loss recommended. 6. DVT Prophylaxis; the patient is on Xarelto.
--- NOTE | 2017-05-13 17:17 | PCM.CONS.GEN ---
Problem List (1) Shortness of breath Status: Acute (2) Pulmonary edema Status: Acute Qualifiers: Chronicity: acute Qualified Code(s): J81.0 - Acute pulmonary edema (3) S/P left atrial appendage ligation Status: Chronic Comment: 02/25/2017 @ [facility] with Dr. Fierro (4) S/P ablation of atrial fibrillation Status: Chronic Comment: Convergent ablation 02/25/2017 @ [facility] [address] Dr. Fierro; (5) Atrial fibrillation Status: Chronic Qualifiers: Atrial fibrillation type: paroxysmal Qualified Code(s): I48.0 - Paroxysmal atrial fibrillation; I48.0 - Paroxysmal atrial fibrillation; I48.0 - Paroxysmal atrial fibrillation; I48.0 - Paroxysmal atrial fibrillation Comment: ablation 03/03/2017 (6) Foley esophagus Status: Chronic (7) Morbid obesity with BMI of 45.0-49.9, adult Status: Chronic Reason for Consult Date of Consultation: 05/13/17 History of Present Illness: The patient is a 66 year old F review underwent a Maze procedure and left atrial appendage excision at [facility], I understand in February 2017. patient was under [facility] with increasing dyspnea on exertion and chest discomfort. she underwent a CT scan to gram of the chest to rule out pulmonary embolism. The patient was found to have a left pleural effusion. A pericardial effusion and was felt to be a 6 cm fluid collection at the site of her previous midline incision just below her xiphoid. the question posed by the medicine service was-does this collection need to be drained or treated aggressively. In speaking to the patient, she underwent both a vertical subxiphoid incision for access or a Maze procedure and a left lateral mini thoracotomy. She denies redness or swelling at either incision site. She notes no drainage from the subxiphoid incision. She notes no pain in that area. Overall-the patient's complaint is shortness of breath and dyspnea on exertion. She asked me if this collection could be related to her dyspnea on exertion. Given the pericardial effusion, the patient did undergo an echocardiogram which seems demonstrated a smaller effusion. It did not seem to be compressing or causing a pericardial tamponade. I was consulted. my review of the CT scan demonstrates a left pleural effusion and the pericardial effusion. The collection is extra-abdominal. It is located in the subcutaneous fat and is underneath the site of the incision and extends slightly anterior and superior to the xiphoid. There are no air bubbles this collection. It did not appear to be acutely of the pleural space or the pericardial space. It is a relatively double density that makes me feel this is either likely a seroma or a resolving hematoma. The patient has significant past medical history including coronary disease, CVA, atrial fibrillation, morbid obesity Past Medical History Past Medical History (Chronic Problems): Chronic Problems (Last Reviewed 05/06/17 @ 07:59 by Kimberlee Desai) Edema (Chronic) Hypokalemia (Chronic) S/P left atrial appendage ligation (Chronic) 02/25/2017 @ [facility] with Dr. Fierro S/P ablation of atrial fibrillation (Chronic) Convergent ablation 02/25/2017 @ [facility] by Dr. Fierro; Atrial fibrillation (Chronic) ablation 03/03/2017 Anemia (Chronic) HTN (hypertension) (Chronic) GERD (gastroesophageal reflux disease) (Chronic) Hiatal hernia (Chronic) Foley esophagus (Chronic) Morbid obesity with BMI of 45.0-49.9, adult (Chronic) Allergies Latex, Natural Rubber Adverse Reaction (Intermediate, Verified 05/12/17 11:06) UNKNOWN olmesartan [From Benicar] Adverse Reaction (Verified 05/12/17 11:06) Itching Home Medications: Ambulatory Orders Medication Instructions Recorded Amlodipine [Norvasc] 5 mg PO DAILY 04/21/13 Fluoxetine [Prozac] 20 mg PO DAILY 04/21/13 Levothyroxine [Synthroid] 88 mcg PO DAILY 04/21/13 Pantoprazole Sodium [Protonix] 40 mg PO BID 04/21/13 Rivaroxaban [Xarelto] 20 mg PO QHS 01/18/16 Magnesium Oxide [Mag-Ox 400] 400 mg PO DAILY 01/13/17 amiodarone 200 mg tablet 200 mg PO DAILY 04/04/17 cholecalciferol (vitamin D3) 2,000 2,000 unit PO DAILY 04/04/17 unit capsule furosemide 40 mg tablet 80 mg PO DAILY tab 04/04/17 potassium chloride ER 20 mEq 40 meq PO BID tab 04/04/17 tablet,extended release Carvedilol [Coreg] 12.5 mg PO BID 05/12/17 Furosemide [Lasix] 40 mg PO DINNER 05/12/17 Surgical History: cholecystectomy, herniorrhaphy, hysterectomy, - - x 3. 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 Lives: Spouse/ Significant Other Smoking Status: Never smoker Tobacco Use: Non-smoker Alcohol: None Drugs: None - *Family History Maternal History Items: Heart Disease - CHF Paternal History Items: Stroke Review of Systems Constitutional: Reports: Weakness, Fatigue Cardiovascular: Reports: Chest Pain, Chest Pressure Respiratory: Reports: Shortness of breath upon exertion Gastrointestinal: Denies: Abdominal Pain, Nausea, Vomiting Genitourinary: Denies: Dysuria Patient Problems: Active and Suspected Problems (Last Reviewed 05/06/17 @ 07:59 by Kimberlee Desai) Shortness of breath (Acute) - Physical Exam General: Alert, Oriented x3, - - morbidly obese Neck: Supple, No JVD Lungs: Clear to auscultation, Diminished, - - dullness to percussion the left [id number] left lateral thoracic incision Cardiovascular: Rubs, - - distant heart sounds Abdomen: Bowel Sounds Present, Soft, Non Tender, - - the incision site demonstrates no erythema or fluctuance. She is nontender in the area Vital Signs Temp Pulse Resp BP Pulse Ox 99.0 F 61 18 136/44 H 93 05/13/17 15:10 05/13/17 15:10 05/13/17 15:10 05/13/17 15:10 05/13/17 15:10 Oxygen Delivery Method Room Air Weight: 139 kg Body Mass Index (BMI) 52.4 Intake and Output for Last 24 Hours 05/11/17 05/12/17 05/13/17 23:59 23:59 23:59 Intake Total 720 / 720 600 / 600 Output Total 650 / 650 1500 / 1500 Balance 70 / 70 -900 / -900 Laboratory Tests Past 24 Hrs 05/13/17 05:45 Sodium 140 Potassium 3.5 Chloride 102 Carbon Dioxide 29.0 Anion Gap 9 BUN 12 Creatinine 0.98 Estim Creat Clear Calc 50.08 Est GFR (MDRD) Af Amer 73 Est GFR (MDRD) Non-Af 60 BUN/Creatinine Ratio 12.2 Glucose 107 H Calcium 8.3 L Assessment/Plan Active and Suspected Problems (Last Reviewed 05/06/17 @ 07:59 by Kimberlee Desai) Shortness of breath (Acute) likely chronic seroma or resolving hematoma. The patient is asymptomatic at this location. I doubt this communicates with the deeper structures. I would recommend leaving this site alone. If it becomes more swollen or uncomfortable. I would recommend ultrasound to assess if this is more liquid or hematoma and consider aspiration only if we suspect that it was infected.
--- NOTE | 2017-05-13 17:25 | CON.PCM_ITS ---
Problem List (1) Shortness of breath Status: Acute (2) Pulmonary edema Status: Acute Qualifiers: Chronicity: acute Qualified Code(s): J81.0 - Acute pulmonary edema (3) S/P left atrial appendage ligation Status: Chronic Comment: 02/25/2017 @ [facility] with Dr. Fierro (4) S/P ablation of atrial fibrillation Status: Chronic Comment: Convergent ablation 02/25/2017 @ [facility] [address] Fierro; (5) Atrial fibrillation Status: Chronic Qualifiers: Atrial fibrillation type: paroxysmal Qualified Code(s): I48.0 - Paroxysmal atrial fibrillation; I48.0 - Paroxysmal atrial fibrillation; I48.0 - Paroxysmal atrial fibrillation; I48.0 - Paroxysmal atrial fibrillation Comment: ablation 03/03/2017 (6) Foley esophagus Status: Chronic (7) Morbid obesity with BMI of 45.0-49.9, adult Status: Chronic Reason for Consult Date of Consultation: 05/13/17 History of Present Illness: The patient is a 66 year old F review underwent a Maze procedure and left atrial appendage excision at [facility], I understand in February 2017. patient was under [facility] with increasing dyspnea on exertion and chest discomfort. she underwent a CT scan to gram of the chest to rule out pulmonary embolism. The patient was found to have a left pleural effusion. A pericardial effusion and was felt to be a 6 cm fluid collection at the site of her previous midline incision just below her xiphoid. the question posed by the medicine service was-does this collection need to be drained or treated aggressively. In speaking to the patient, she underwent both a vertical subxiphoid incision for access or a Maze procedure and a left lateral mini thoracotomy. She denies redness or swelling at either incision site. She notes no drainage from the subxiphoid incision. She notes no pain in that area. Overall-the patient's complaint is shortness of breath and dyspnea on exertion. She asked me if this collection could be related to her dyspnea on exertion. Given the pericardial effusion, the patient did undergo an echocardiogram which seems demonstrated a smaller effusion. It did not seem to be compressing or causing a pericardial tamponade. I was consulted. my review of the CT scan demonstrates a left pleural effusion and the pericardial effusion. The collection is extra-abdominal. It is located in the subcutaneous fat and is underneath the site of the incision and extends slightly anterior and superior to the xiphoid. There are no air bubbles this collection. It did not appear to be acutely of the pleural space or the pericardial space. It is a relatively double density that makes me feel this is either likely a seroma or a resolving hematoma. The patient has significant past medical history including coronary disease, CVA , atrial fibrillation, morbid obesity Past Medical History Past Medical History (Chronic Problems): Chronic Problems (Last Reviewed 05/06/17 @ 07:59 by Kimberlee Desai) Edema (Chronic) Hypokalemia (Chronic) S/P left atrial appendage ligation (Chronic) 02/25/2017 @ [facility] with Dr. Fierro S/P ablation of atrial fibrillation (Chronic) Convergent ablation 02/25/2017 @ [facility] [address] Dr[address] Fierro; Atrial fibrillation (Chronic) ablation 03/03/2017 Anemia (Chronic) HTN (hypertension) (Chronic) GERD (gastroesophageal reflux disease) (Chronic) Hiatal hernia (Chronic) Foley esophagus (Chronic) Morbid obesity with BMI of 45.0-49.9, adult (Chronic) Allergies Latex, Natural Rubber Adverse Reaction (Intermediate, Verified 05/12/17 11:06) UNKNOWN olmesartan [From Benicar] Adverse Reaction (Verified 05/12/17 11:06) Itching Home Medications: Ambulatory Orders Medication Instructions Recorded Amlodipine [Norvasc] 5 mg PO DAILY 04/21/13 Fluoxetine [Prozac] 20 mg PO DAILY 04/21/13 Levothyroxine [Synthroid] 88 mcg PO DAILY 04/21/13 Pantoprazole Sodium [Protonix] 40 mg PO BID 04/21/13 Rivaroxaban [Xarelto] 20 mg PO QHS 01/18/16 Magnesium Oxide [Mag-Ox 400] 400 mg PO DAILY 01/13/17 amiodarone 200 mg tablet 200 mg PO DAILY 04/04/17 cholecalciferol (vitamin D3) 2,000 2,000 unit PO DAILY 04/04/17 unit capsule furosemide 40 mg tablet 80 mg PO DAILY tab 04/04/17 potassium chloride ER 20 mEq 40 meq PO BID tab 04/04/17 tablet,extended release Carvedilol [Coreg] 12.5 mg PO BID 05/12/17 Furosemide [Lasix] 40 mg PO DINNER 05/12/17 Surgical History: cholecystectomy, herniorrhaphy, hysterectomy, - - x 3. 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 Lives: Spouse/ Significant Other Smoking Status: Never smoker Tobacco Use: Non-smoker Alcohol: None Drugs: None - *Family History Maternal History Items: Heart Disease - CHF Paternal History Items: Stroke Review of Systems Constitutional: Reports: Weakness, Fatigue Cardiovascular: Reports: Chest Pain, Chest Pressure Respiratory: Reports: Shortness of breath upon exertion Gastrointestinal: Denies: Abdominal Pain, Nausea, Vomiting Genitourinary: Denies: Dysuria Patient Problems: Active and Suspected Problems (Last Reviewed 05/06/17 @ 07:59 by Kimberlee Desai) Shortness of breath (Acute) - Physical Exam General: Alert, Oriented x3, - - morbidly obese Neck: Supple, No JVD Lungs: Clear to auscultation, Diminished, - - dullness to percussion the left [id number]-[id number]-azaemo left lateral thoracic incision Cardiovascular: Rubs, - - distant heart sounds Abdomen: Bowel Sounds Present, Soft, Non Tender, - - the incision site demonstrates no erythema or fluctuance. She is nontender in the area Vital Signs Temp Pulse Resp BP Pulse Ox 99.0 F 61 18 136/44 H 93 05/13/17 15:10 05/13/17 15:10 05/13/17 15:10 05/13/17 15:10 05/13/17 15:10 Oxygen Delivery Method Room Air Weight: 139 kg Body Mass Index (BMI) 52.4 Intake and Output for Last 24 Hours 05/11/17 05/12/17 05/13/17 23:59 23:59 23:59 Intake Total 720 / 720 600 / 600 Output Total 650 / 650 1500 / 1500 Balance 70 / 70 -900 / -900 Laboratory Tests Past 24 Hrs 05/13/17 05:45 Sodium 140 Potassium 3.5 Chloride 102 Carbon Dioxide 29.0 Anion Gap 9 BUN 12 Creatinine 0.98 Estim Creat Clear Calc 50.08 Est GFR (MDRD) Af Amer 73 Est GFR (MDRD) Non-Af 60 BUN/Creatinine Ratio 12.2 Glucose 107 H Calcium 8.3 L Assessment/Plan Active and Suspected Problems (Last Reviewed 05/06/17 @ 07:59 by Kimberlee Desai) Shortness of breath (Acute) likely chronic seroma or resolving hematoma. The patient is asymptomatic at this location. I doubt this communicates with the deeper structures. I would recommend leaving this site alone. If it becomes more swollen or uncomfortable. I would recommend ultrasound to assess if this is more liquid or hematoma and consider aspiration only if we suspect that it was infected.
[2017-05-13] MEDS: Rivaroxaban 20 MG Tablet PO (22:23)
--- NOTE | 2017-05-13 23:55 | EKG12_ITS ---
Test Reason : Blood Pressure : / mmHG Vent. Rate : 074 BPM Atrial Rate : 288 BPM P-R Int : 000 ms QRS Dur : 094 ms QT Int : 192 ms P-R-T Axes : 000 017 000 degrees QTc Int : 213 ms Atrial fibrillation /FLUTTER Low voltage QRS Abnormal ECG Confirmed by NILO TREJO, TEQUILA ([id number]), publication editor KURTIS SWAIN ([id number]) on 05/19/2017 2:10:17 PM Referred By: Joon Navarro Confirmed By:TEQUILA CORCORAN MD
[2017-05-14] VITALS (10 sets, daily range): BP systolic 96–116; BP diastolic 50–67; PULSE 72–89; RESP 14–18; TEMP 36.6–37.6; O2SAT 93–96
--- NOTE | 2017-05-14 00:29 | NURSING ---
tele strip questionable for afib. This RN called RT for an EKG to confirm. Results show Afib
[2017-05-14] MEDS: Levothyroxine 88 MCG Tablet PO (06:00)
[2017-05-14] MEDS: Amiodarone 200 MG Tablet PO (09:47)
[2017-05-14] MEDS: FLUoxetine 20 MG Capsule PO (09:48)
[2017-05-14] MEDS: Carvedilol 12.5 MG Tablet PO ×2 (09:48→21:58)
[2017-05-14] MEDS: amLODIPine 5 MG Tablet PO (09:48)
[2017-05-14] MEDS: Furosemide 40 MG/4 ML Vial IV ×2 (09:48→17:21)
[2017-05-14] MEDS: 0.9% NaCl Peripheral Flush Adult/Peds IV ×3 (09:48→21:00)
[2017-05-14] MEDS: Pantoprazole Sodium 40 MG Tablet PO ×2 (09:48→21:01)
--- NOTE | 2017-05-14 13:39 | CON.PCM_ITS ---
Problem List (1) Shortness of breath Status: Acute (2) Pulmonary edema Status: Acute Qualifiers: Chronicity: acute Qualified Code(s): J81.0 - Acute pulmonary edema (3) Edema Status: Chronic Qualifiers: Edema type: unspecified Qualified Code(s): R60.9 - Edema, unspecified; R60.9 - Edema, unspecified (4) S/P left atrial appendage ligation Status: Chronic Comment: 02/25/2017 @ [facility] with Dr. Fierro (5) S/P ablation of atrial fibrillation Status: Chronic Comment: Convergent ablation 02/25/2017 @ [facility] [address] Dr[address] Fierro; (6) Atrial fibrillation Status: Chronic Qualifiers: Atrial fibrillation type: paroxysmal Qualified Code(s): I48.0 - Paroxysmal atrial fibrillation; I48.0 - Paroxysmal atrial fibrillation; I48.0 - Paroxysmal atrial fibrillation; I48.0 - Paroxysmal atrial fibrillation Comment: ablation 03/03/2017 Reason for Consult Date of Consultation: 05/14/17 Reason for Consultation: Pleural effusion, pericardial effusion, shortness of breath, lower extremity edema. History of Present Illness: The patient is a 66 year old severely obese f, patient of [facility], who recently underwent an left atrial appendage ligation minimally invasive maze procedure at [facility] under supervision of Dr. David Hurtado. This Apparently Took Pl. in March of 2017 although I do not have the exact records in front of me. According to the patient postoperatively she did fairly well, and has maintained normal sinus rhythm with the assistance of amiodarone. She is currently anticoagulated. She most recently saw Dr. Hurtado at [facility] sometime last week and was doing fairly well. The patient developed what sounds like a upper respiratory tract infection approximately 1 week ago, and developed shortness of breath. She sought medical attention with Marco in our office, who apparently doubled her Lasix to 40 mg p.o. twice daily. When this did not improve her shortness of breath her PCP increased it to 60 in the morning and 40 in the evening. Patient continued to do poorly with her shortness of breath and sought medical attention in the [facility] ER. There a chest x-ray was performed which demonstrated pulmonary vascular redistribution, and left pleural effusion. She also underwent a CT scan which demonstrated no evidence of pulmonary emboli, small pericardial effusion, left pleural effusion and what appeared to be left lower lobe consolidation. Patient was treated with IV diuretic therapy and has slowly improved. Patient was admitted with sinus bradycardia however last evening she reverted to atrial fibrillation with controlled ventricular response. Patient reports that her shortness of breath has improved and her orthopnea/PND is almost completely resolved. A 2D echo with Doppler was also performed which demonstrated a small circumferential pericardial effusion without any evidence of left atrial or left ventricular collapse/tamponade, normal LV function. RVSP had increased from 45 to 56 mmHg. Severe left atrial enlargement, moderate right atrial enlargement. Patient denies any chest pain, angina. [] Past Medical History Allergies/Adverse Reactions: Allergies Latex, Natural Rubber Adverse Reaction (Intermediate, Verified 05/12/17 11:06) UNKNOWN olmesartan [From Benicar] Adverse Reaction (Verified 05/12/17 11:06) Itching Home Medications: Ambulatory Orders Medication Instructions Recorded Amlodipine [Norvasc] 5 mg PO DAILY 04/21/13 Fluoxetine [Prozac] 20 mg PO DAILY 04/21/13 Levothyroxine [Synthroid] 88 mcg PO DAILY 04/21/13 Pantoprazole Sodium [Protonix] 40 mg PO BID 04/21/13 Rivaroxaban [Xarelto] 20 mg PO QHS 01/18/16 Magnesium Oxide [Mag-Ox 400] 400 mg PO DAILY 01/13/17 amiodarone 200 mg tablet 200 mg PO DAILY 04/04/17 cholecalciferol (vitamin D3) 2,000 2,000 unit PO DAILY 04/04/17 unit capsule furosemide 40 mg tablet 80 mg PO DAILY tab 04/04/17 potassium chloride ER 20 mEq 40 meq PO BID tab 04/04/17 tablet,extended release Carvedilol [Coreg] 12.5 mg PO BID 05/12/17 Furosemide [Lasix] 40 mg PO DINNER 05/12/17 Past Medical History (Chronic Problems): Chronic Problems (Last Reviewed 05/06/17 @ 07:59 by Kimberlee Desai) Edema (Chronic) Hypokalemia (Chronic) S/P left atrial appendage ligation (Chronic) 02/25/2017 @ [facility] with Dr. Fierro S/P ablation of atrial fibrillation (Chronic) Convergent ablation 02/25/2017 @ [facility] [address] Fierro; Atrial fibrillation (Chronic) ablation 03/03/2017 Anemia (Chronic) HTN (hypertension) (Chronic) GERD (gastroesophageal reflux disease) (Chronic) Hiatal hernia (Chronic) Foley esophagus (Chronic) Morbid obesity with BMI of 45.0-49.9, adult (Chronic) Surgical History: cholecystectomy, herniorrhaphy, hysterectomy, - - x 3. 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 - *Family History Maternal Family History: Family History (Last Reviewed 05/06/17 @ 07:59 by Kimberlee Desai) Mother CAD (coronary artery disease) Father CVA (cerebral vascular accident) History Items: Heart Disease - CHF Paternal Family History: Family History (Last Reviewed 05/06/17 @ 07:59 by Kimberlee Desai) Mother CAD (coronary artery disease) Father CVA (cerebral vascular accident) History Items: Stroke Lives: Spouse/ Significant Other Smoking Status: Never smoker Tobacco Use: Non-smoker Alcohol: None Drugs: None Review of Systems - Review of Systems General: Reports: Fatigue, Malaise, Chills, Weakness Cardiovascular: Reports: Shortness of Breath at Rest, Orthopnea, Palpitations Respiratory: Denies: Cough, Sputum Production, Hemoptysis Gastrointestinal: Denies: Hematemesis, Hematochezia, Melena Genitourinary: Denies: Dysuria, Hematuria Subjectve: Patient resting in bed, no acute distress. Objective: Vital Signs Temp Pulse Resp BP Pulse Ox 97.8 F 85 18 116/50 L 96 05/14/17 09:45 05/14/17 11:07 05/14/17 09:45 05/14/17 09:45 05/14/17 09:45 Oxygen Flow Rate 2 Oxygen Delivery Method Room Air Weight: 304 lb 14.389 oz Body Mass Index (BMI) 52.4 Intake and Output for Last 24 Hours 05/12/17 05/13/17 05/14/17 23:59 23:59 23:59 Intake Total 720 / 720 1320 / 1320 680 / 680 Output Total 650 / 650 1700 / 1700 1200 / 1200 Balance 70 / 70 -380 / -380 -520 / -520 General: Awake, Alert, Oriented x 3 HEENT: PERRL, EOMI, Sclera Non Icteric Neck: Supple, Good ROM, No Lymph Node Enlargement Lungs: Clear to auscultation, Diminished Left Base, Rales - Left Base Cardiovascular: Irregular Rhythm, Normal S1, Normal S2, No Rubs, No Gallops Murmur Murmur: Grade 2/6, Holosystolic Vascular: No Carotid Bruits, Normal Femoral Pulses, Normal Radial Pulses, Normal Dorsalis Pedal Pulse, Normal Posterior Tibial Pulses Abdomen: Bowel Sounds Present, Soft, Non Tender, No HSM, No Organomegaly Extremities: No Cyanosis, No Clubbing, No edema Neurological: No Focal Motor or Sensory Deficit Rhythm: Currently atrial fibrillation with controlled ventricular response. EKG: Atrial fibrillation with controlled ventricular response. Previous admitting EKG showed sinus bradycardia. ECHO: As above Stress Test: Cardiac Cath: From 01/2017 normal coronary arteries, normal LV function. PCI: CT Surgery: Holter monitor: EPS: PPM: CXR: Chest CT Scan: Assessment/Plan 1. Atrial fibrillation: The patient is status post modified Maze procedure in March 2017 with left atrial patient ligation. Patient unfortunately has reverted back to atrial fibrillation although it appears she has been in sinus rhythm ever since. This may be a result of her pleural effusion and pericardial effusion. In addition her pulmonary pressures have also increased, and I am uncertain whether this was as a result of her surgical procedure with possibly decreased venous return to the left side versus worsening of known pulmonary hypertension. In addition she had a recent respiratory illness which may have segued into pleural effusions and pericardial effusions. It appears to be diuresing fairly well and she feels better with diuresis. It is doubtful the patient's pericardial effusion as a result of her Maze procedure. I recommend slow IV diuresis as we are doing with Lasix 40 mg IV twice daily to get a net negative goal of urine output of 1000 cc per day. Once the patient has been able to lay down flat, I would recommend reverting her to Lasix 60 mg p.o. twice daily. Patient has normal coronary arteries, most likely does not have any ischemic reasons for her pulmonary hypertension. Patient has known obstructive sleep apnea which is most likely the cause of her pulmonary hypertension. In addition I will continue her amiodarone and Coreg as currently prescribed. In addition I would continue her anticoagulation with Xarelto. 2. Thank you very much for the opportunity to participate in the cardiac care of your patient. Consultation time took place between 10 AM and 10:30 AM. Code Visit Inpatient E&M: 77722 Init Hosp L2
[2017-05-14] MEDS: Ibuprofen 600 MG Tablet PO (14:12)
--- NOTE | 2017-05-14 16:46 | PCM.PN.HOSP ---
Patient Problems: Active and Suspected Problems (Last Reviewed 05/06/17 @ 07:59 by Kimberlee Desai) Shortness of breath (Acute) Subjective: CC: shortness of breath Her Dyspnea is improving with IV Lasix. The patient has now gone back into atrial fibrillation. Vitals/I&O's: Vital Signs Temp Pulse Resp BP Pulse Ox 99.6 F H 82 18 116/54 L 96 05/14/17 15:13 05/14/17 15:19 05/14/17 15:13 05/14/17 15:13 05/14/17 15:13 Oxygen Flow Rate 2 Oxygen Delivery Method Room Air Weight: 138.3 kg Body Mass Index (BMI) 52.4 Intake and Output for Last 24 Hours 05/12/17 05/13/17 05/14/17 23:59 23:59 23:59 Intake Total 720 / 720 1320 / 1320 680 / 680 Output Total 650 / 650 1700 / 1700 1200 / 1200 Balance 70 / 70 -380 / -380 -520 / -520 General: Alert, Oriented x3 HEENT: Atraumatic Lungs: Clear to auscultation Cardiovascular: Normal S1, Normal S2, Irregular Rate Abdomen: Bowel Sounds Present, Bowel Sounds Not Present Extremities: Edema Current Medications Acetaminophen (Tylenol) 650 mg PO Q6H PRN PRN PRN Reason: PAIN Last Admin: 05/13/17 15:39 Dose: 650 mg Amiodarone HCl (Cordarone) 200 mg PO DAILY [facility] Last Admin: 05/14/17 09:47 Dose: 200 mg Amlodipine Besylate (Norvasc) 5 mg PO DAILY [facility] Last Admin: 05/14/17 09:48 Dose: 5 mg Carvedilol (Coreg) 12.5 mg PO BID [facility] Last Admin: 05/14/17 09:48 Dose: 12.5 mg Fluoxetine HCl (Prozac) 20 mg PO DAILY [facility] Last Admin: 05/14/17 09:48 Dose: 20 mg Furosemide (Lasix) 40 mg IV BID@1000,1800 [facility] Last Admin: 05/14/17 09:48 Dose: 40 mg Ibuprofen (Motrin) 600 mg PO Q8H PRN PRN PRN Reason: MILD PAIN (1-3/10) Last Admin: 05/14/17 14:12 Dose: 600 mg Levothyroxine Sodium (Synthroid) 88 mcg PO DAILY@0600 [facility] Last Admin: 05/14/17 06:00 Dose: 88 mcg Pantoprazole Sodium (Protonix) 40 mg PO BID [facility] Last Admin: 05/14/17 09:48 Dose: 40 mg Potassium Chloride (K-Dur) 40 meq PO BID [facility] Last Admin: 05/14/17 09:48 Dose: 40 meq Rivaroxaban (Xarelto) 20 mg PO QHS [facility] Last Admin: 05/13/17 22:23 Dose: 20 mg Sodium Chloride () 5 - 30 ml IV UD PRN PRN Reason: SALINE FLUSH Last Admin: 05/14/17 09:48 Dose: 10 ml Assessment/Plan Active and Suspected Problems (Last Reviewed 05/06/17 @ 07:59 by Kimberlee Desai) Shortness of breath (Acute) 1 Dyspnea ; likely due to acute diastolic congestive hear failure, we will continue continue on IV Lasix. 2. Pericardial effusion; echocardiogram showed no tamponade physiology. 3. Fluid collection anterior abdomen/ lower chest wall; likely chronic seroma or resolving hematoma, will monitor at this time. 4. Atrial fibrillation status post maze procedure , the patient is back in afib, amiodarone , Coreg and anticoagulation with Xarelto. 5 morbid obesity; loss recommended. 6. DVT Prophylaxis; the patient is on Xarelto. Code Visit Inpatient E&M: 04372 [facility] L[facility]
--- NOTE | 2017-05-14 16:53 | PN_ITS ---
Patient Problems: Active and Suspected Problems (Last Reviewed 05/06/17 @ 07:59 by Kimberlee Dseai) Shortness of breath (Acute) Subjective: CC: shortness of breath Her Dyspnea is improving with IV Lasix. The patient has now gone back into atrial fibrillation. Vitals/I&O's: Vital Signs Temp Pulse Resp BP Pulse Ox 99.6 F H 82 18 116/54 L 96 05/14/17 15:13 05/14/17 15:19 05/14/17 15:13 05/14/17 15:13 05/14/17 15:13 Oxygen Flow Rate 2 Oxygen Delivery Method Room Air Weight: 138.3 kg Body Mass Index (BMI) 52.4 Intake and Output for Last 24 Hours 05/12/17 05/13/17 05/14/17 23:59 23:59 23:59 Intake Total 720 / 720 1320 / 1320 680 / 680 Output Total 650 / 650 1700 / 1700 1200 / 1200 Balance 70 / 70 -380 / -380 -520 / -520 General: Alert, Oriented x3 HEENT: Atraumatic Lungs: Clear to auscultation Cardiovascular: Normal S1, Normal S2, Irregular Rate Abdomen: Bowel Sounds Present, Bowel Sounds Not Present Extremities: Edema Current Medications Acetaminophen (Tylenol) 650 mg PO Q6H PRN PRN PRN Reason: PAIN Last Admin: 05/13/17 15:39 Dose: 650 mg Amiodarone HCl (Cordarone) 200 mg PO DAILY [facility] Last Admin: 05/14/17 09:47 Dose: 200 mg Amlodipine Besylate (Norvasc) 5 mg PO DAILY [facility] Last Admin: 05/14/17 09:48 Dose: 5 mg Carvedilol (Coreg) 12.5 mg PO BID [facility] Last Admin: 05/14/17 09:48 Dose: 12.5 mg Fluoxetine HCl (Prozac) 20 mg PO DAILY [facility] Last Admin: 05/14/17 09:48 Dose: 20 mg Furosemide (Lasix) 40 mg IV BID@1000,1800 [facility] Last Admin: 05/14/17 09:48 Dose: 40 mg Ibuprofen (Motrin) 600 mg PO Q8H PRN PRN PRN Reason: MILD PAIN (1-3/10) Last Admin: 05/14/17 14:12 Dose: 600 mg Levothyroxine Sodium (Synthroid) 88 mcg PO DAILY@0600 [facility] Last Admin: 05/14/17 06:00 Dose: 88 mcg Pantoprazole Sodium (Protonix) 40 mg PO BID [facility] Last Admin: 05/14/17 09:48 Dose: 40 mg Potassium Chloride (K-Dur) 40 meq PO BID [facility] Last Admin: 05/14/17 09:48 Dose: 40 meq Rivaroxaban (Xarelto) 20 mg PO QHS [facility] Last Admin: 05/13/17 22:23 Dose: 20 mg Sodium Chloride () 5 - 30 ml IV UD PRN PRN Reason: SALINE FLUSH Last Admin: 05/14/17 09:48 Dose: 10 ml Assessment/Plan Active and Suspected Problems (Last Reviewed 05/06/17 @ 07:59 by Kimberlee Desai) Shortness of breath (Acute) 1 Dyspnea ; likely due to acute diastolic congestive hear failure, we will continue continue on IV Lasix. 2. Pericardial effusion; echocardiogram showed no tamponade physiology. 3. Fluid collection anterior abdomen/ lower chest wall; likely chronic seroma or resolving hematoma, will monitor at this time. 4. Atrial fibrillation status post maze procedure , the patient is back in afib , amiodarone , Coreg and anticoagulation with Xarelto. 5 morbid obesity; loss recommended. 6. DVT Prophylaxis; the patient is on Xarelto. Code Visit Inpatient E&M: 86067 [facility] Hosp L2
[2017-05-14] MEDS: Rivaroxaban 20 MG Tablet PO (21:00)
[2017-05-15] VITALS (10 sets, daily range): BP systolic 101–124; BP diastolic 48–67; PULSE 56–77; RESP 16–18; TEMP 36.3–37; O2SAT 93–97
[2017-05-15] MEDS: Levothyroxine 88 MCG Tablet PO (05:45)
--- NOTE | 2017-05-15 08:56 | EKG12_ITS ---
Test Reason : Blood Pressure : / mmHG Vent. Rate : 072 BPM Atrial Rate : 072 BPM P-R Int : 202 ms QRS Dur : 096 ms QT Int : 414 ms P-R-T Axes : 063 006 082 degrees QTc Int : 453 ms Normal sinus rhythm Low voltage QRS Nonspecific T wave abnormality Abnormal ECG Confirmed by NILO TREJO, TEQUILA ([id number]), material expeditor KURTIS SWAIN ([id number]) on 05/19/2017 1:44:13 PM Referred By: Joon Navarro Confirmed By:TEQUILA CORCORAN MD
--- NOTE | 2017-05-15 09:26 | PCM.PN.CARD ---
Subjectve: Patient slowly improving, telemetry showed back in normal sinus rhythm. EKG confirmation pending. Patient reports that her shortness of breath has improved but still has significant dyspnea on exertion from walking to the chair to the bathroom. No fevers or chills. At -400 cc over 24 hours. Objective: Vital Signs Temp Pulse Resp BP Pulse Ox 97.4 F L 62 16 101/65 93 05/15/17 03:04 05/15/17 07:17 05/15/17 03:04 05/15/17 03:04 05/15/17 03:04 Oxygen Flow Rate 2 Oxygen Delivery Method Room Air Weight: 305 lb 5.443 oz Body Mass Index (BMI) 52.4 Intake and Output for Last 24 Hours 05/13/17 05/14/17 05/15/17 23:59 23:59 23:59 Intake Total 1320 / 1320 2000 / 2000 Output Total 1700 / 1700 2400 / 2400 Balance -380 / -380 -400 / -400 General: Awake, Alert, Oriented x 3 HEENT: PERRL, EOMI, Sclera Non Icteric Neck: Supple, Good ROM, No Lymph Node Enlargement Lungs: Clear to auscultation, Diminished Left Base Cardiovascular: Regular Rhythm, Normal S1, Normal S2, No Rubs, No Gallops Murmur Murmur: Grade 2/6, Holosystolic Vascular: No Carotid Bruits, Normal Femoral Pulses, Normal Radial Pulses, Normal Dorsalis Pedal Pulse, Normal Posterior Tibial Pulses Abdomen: Bowel Sounds Present, Soft, Non Tender, No HSM, No Organomegaly Extremities: No Cyanosis, No Clubbing, No edema Neurological: No Focal Motor or Sensory Deficit Rhythm: EKG: ECHO: Stress Test: Cardiac Cath: PCI: CT Surgery: Holter monitor: EPS: PPM: CXR: Chest CT Scan: Assessment/Plan 1. Atrial fibrillation: The patient is status post modified Maze procedure in March 2017 with left atrial patient ligation. During her convalescence she reverted back to atrial fibrillation but is now back in normal sinus rhythm. This may be a result of her pleural effusion and pericardial effusion. In addition her pulmonary pressures have also increased, and I am uncertain whether this was as a result of her surgical procedure with possibly decreased venous return to the left side versus worsening of known pulmonary hypertension. In addition she had a recent respiratory illness which may have segued into pleural effusions and pericardial effusions. It appears to be diuresing fairly well and she feels better with diuresis, however, she can remains with dyspnea on exertion. I recommended that we add metolazone 2.5 mg ?1 today to her IV Lasix 40 mg twice daily. Once the patient is back to her baseline, she can then be discharged home. It is doubtful the patient's pericardial effusion as a result of her Maze procedure. I recommend slow IV diuresis as we are doing with Lasix 40 mg IV twice daily to get a net negative goal of urine output of 1000 cc per day. Once the patient has been able to lay down flat, I would recommend increasing her to Lasix 60 mg p.o. twice daily. Patient has normal coronary arteries, most likely does not have any ischemic reasons for her pulmonary hypertension. Patient has known obstructive sleep apnea which is most likely the cause of her pulmonary hypertension. In addition I will continue her amiodarone and Coreg as currently prescribed. In addition I would continue her anticoagulation with Xarelto. Recommend keeping her potassium between 4.0 and her magnesium above 2.0. She is already on potassium 40 mEq p.o. twice daily, and may require a higher dose in the short-term given her IV diuresis. 2. Obstructive sleep apnea: Continue CPAP therapy. 3. Thank you very much for the opportunity to participate in the cardiac care of your patient. Code Visit Inpatient E&M: 02500 Subs Hosp L2
[2017-05-15] MEDS: FLUoxetine 20 MG Capsule PO (09:44)
[2017-05-15] MEDS: Pantoprazole Sodium 40 MG Tablet PO ×2 (09:44→21:23)
[2017-05-15] MEDS: Furosemide 40 MG/4 ML Vial IV ×2 (09:45→17:40)
[2017-05-15] MEDS: amLODIPine 5 MG Tablet PO (09:45)
[2017-05-15] MEDS: 0.9% NaCl Peripheral Flush Adult/Peds IV ×3 (09:45→17:40)
[2017-05-15] MEDS: Amiodarone 200 MG Tablet PO (09:45)
[2017-05-15] MEDS: Carvedilol 12.5 MG Tablet PO ×2 (09:45→21:24)
--- NOTE | 2017-05-15 10:03 | PCM.PN.HOSP ---
Patient Problems: Active and Suspected Problems (Last Reviewed 05/06/17 @ 07:59 by Kimberlee Desai) Shortness of breath (Acute) Subjective: CC : Dyspnea Objective: She has Dyspnea with exertion, she is back in sinus rhythm. No Acute events reported overnight. Vitals/I&O's: Vital Signs Temp Pulse Resp BP Pulse Ox 98.6 F 65 16 113/48 L 97 05/15/17 09:20 05/15/17 09:20 05/15/17 09:20 05/15/17 09:20 05/15/17 09:20 Oxygen Flow Rate 2 Oxygen Delivery Method Room Air Weight: 138.5 kg Body Mass Index (BMI) 52.4 Intake and Output for Last 24 Hours 05/13/17 05/14/17 05/15/17 23:59 23:59 23:59 Intake Total 1320 / 1320 2000 / 2000 Output Total 1700 / 1700 2400 / 2400 Balance -380 / -380 -400 / -400 Current Medications Acetaminophen (Tylenol) 650 mg PO Q6H PRN PRN PRN Reason: PAIN Last Admin: 05/13/17 15:39 Dose: 650 mg Amiodarone HCl (Cordarone) 200 mg PO DAILY [facility] Last Admin: 05/15/17 09:45 Dose: 200 mg Amlodipine Besylate (Norvasc) 5 mg PO DAILY [facility] Last Admin: 05/15/17 09:45 Dose: 5 mg Carvedilol (Coreg) 12.5 mg PO BID [facility] Last Admin: 05/15/17 09:45 Dose: 12.5 mg Fluoxetine HCl (Prozac) 20 mg PO DAILY [facility] Last Admin: 05/15/17 09:44 Dose: 20 mg Furosemide (Lasix) 40 mg IV BID@1000,1800 [facility] Last Admin: 05/15/17 09:45 Dose: 40 mg Ibuprofen (Motrin) 600 mg PO Q8H PRN PRN PRN Reason: MILD PAIN (1-3) Last Admin: 05/14/17 14:12 Dose: 600 mg Levothyroxine Sodium (Synthroid) 88 mcg PO DAILY@0600 [facility] Last Admin: 05/15/17 05:45 Dose: 88 mcg Pantoprazole Sodium (Protonix) 40 mg PO BID [facility] Last Admin: 05/15/17 09:44 Dose: 40 mg Potassium Chloride (K-Dur) 40 meq PO BID [facility] Last Admin: 05/15/17 09:44 Dose: 40 meq Rivaroxaban (Xarelto) 20 mg PO QHS [facility] Last Admin: 05/14/17 21:00 Dose: 20 mg Sodium Chloride () 5 - 30 ml IV UD PRN PRN Reason: SALINE FLUSH Last Admin: 05/15/17 09:45 Dose: 10 ml Assessment/Plan Active and Suspected Problems (Last Reviewed 05/06/17 @ 07:59 by Kimberlee Desai) Shortness of breath (Acute) 1 Dyspnea ; likely due to acute diastolic congestive heart failure, we will continue continue on IV Lasix, Metolazone added. 2. Pericardial effusion; echocardiogram showed no tamponade physiology. 3. Fluid collection anterior abdomen/ lower chest wall; likely chronic seroma or resolving hematoma, will monitor at this time. 4. paroxysmal Atrial fibrillation status post maze procedure , the patient is back in sinus, will continue amiodarone , Coreg and anticoagulation with Xarelto. 5 morbid obesity; loss recommended. 6. DVT Prophylaxis; the patient is on Xarelto.
[2017-05-15] MEDS: Metolazone 2.5 MG Tablet PO (11:19)
[2017-05-15] MEDS: Ibuprofen 600 MG Tablet PO (13:31)
[2017-05-15] MEDS: Rivaroxaban 20 MG Tablet PO (21:23)
[2017-05-16] VITALS (7 sets, daily range): BP systolic 93–114; BP diastolic 43–56; PULSE 53–83; RESP 14–18; TEMP 36.7; O2SAT 90–96
[2017-05-16] MEDS: Levothyroxine 88 MCG Tablet PO (05:27)
[2017-05-16] MEDS: Furosemide 40 MG/4 ML Vial IV (10:26)
[2017-05-16] MEDS: Carvedilol 12.5 MG Tablet PO (10:26)
[2017-05-16] MEDS: Amiodarone 200 MG Tablet PO (10:26)
[2017-05-16] MEDS: amLODIPine 5 MG Tablet PO (10:27)
[2017-05-16] MEDS: FLUoxetine 20 MG Capsule PO (10:27)
[2017-05-16] MEDS: Pantoprazole Sodium 40 MG Tablet PO (10:27)
--- NOTE | 2017-05-16 11:10 | PCM.PN.CARD ---
Subjectve: Patient markedly improved over yesterday with fairly decent diuresis overnight. No chest pain symptoms. Back in sinus rhythm this morning. Objective: Vital Signs Temp Pulse Resp BP Pulse Ox 98.1 F 83 14 114/56 L 93 05/16/17 10:24 05/16/17 10:24 05/16/17 10:24 05/16/17 10:24 05/16/17 10:24 Oxygen Flow Rate 2 Oxygen Delivery Method Room Air Weight: 300 lb 11.368 oz Body Mass Index (BMI) 52.4 Intake and Output for Last 24 Hours 05/14/17 05/15/17 05/16/17 23:59 23:59 23:59 Intake Total 1999 / 1999 1340 / 1340 120 / 120 Output Total 2400 / 2400 2800 / 2800 1150 / 1150 Balance -400 / -400 -1460 / -1460 -1030 / -1030 General: Awake, Alert, Oriented x 3 HEENT: PERRL, EOMI, Sclera Non Icteric Neck: Supple, Good ROM, No Lymph Node Enlargement Lungs: Clear to auscultation Cardiovascular: Regular Rhythm, Normal S1, Normal S2, No Rubs, No Gallops Murmur Murmur: Grade 2/6, Holosystolic Vascular: No Carotid Bruits, Normal Femoral Pulses, Normal Radial Pulses, Normal Dorsalis Pedal Pulse, Normal Posterior Tibial Pulses Abdomen: Bowel Sounds Present, Soft, Non Tender, No HSM, No Organomegaly Extremities: No Cyanosis, No Clubbing, No edema Neurological: No Focal Motor or Sensory Deficit Rhythm: EKG: ECHO: Stress Test: Cardiac Cath: PCI: CT Surgery: Holter monitor: EPS: PPM: CXR: Chest CT Scan: Assessment/Plan 1. Atrial fibrillation: The patient is status post modified Maze procedure in March 2017 with left atrial patient ligation. During her convalescence she reverted back to atrial fibrillation but is now back in normal sinus rhythm. This may be a result of her pleural effusion and pericardial effusion. In addition her pulmonary pressures have also increased, and I am uncertain whether this was as a result of her surgical procedure with possibly decreased venous return to the left side versus worsening of known pulmonary hypertension. In addition she had a recent respiratory illness which may have segued into pleural effusions and pericardial effusions. It appears to be diuresing fairly well and she feels better with diuresis, however, she can remains with dyspnea on exertion. Patient received 2.5 mg of metolazone last evening with a fairly decent diuresis of greater than 2 L over 36 hours. It is doubtful the patient's pericardial effusion as a result of her Maze procedure. Patient has normal coronary arteries, most likely does not have any ischemic reasons for her pulmonary hypertension. Patient has known obstructive sleep apnea which is most likely the cause of her pulmonary hypertension. In addition I will continue her amiodarone and Coreg as currently prescribed. In addition I would continue her anticoagulation with Xarelto. She is back in sinus rhythm this morning and has maintained that. I recommend that she be discharged home on 60 mg p.o. twice daily of Lasix, followed by metolazone 2.5 mg every Friday to assist with diuresis. Patient most likely has dietary indiscretion as well as got edema prohibiting Lasix absorption. I have instructed the patient to refrain from excessive fluid intake to no more than 2 quarts per day, and that she weigh herself every day in order to maintain her dry weight. I have instructed her that if she goes up by more than 3 pounds from the day before that she did take an extra Lasix for that day. Also given her education about salt intake, hidden sources of salt and water, and patient is agreed to adhere to this diet. Recommend keeping her potassium between 4.0 and her magnesium above 2.0. She is already on potassium 40 mEq p.o. twice daily, and may require a higher dose in the short-term given her IV diuresis. 2. Obstructive sleep apnea: Continue CPAP therapy. 3. Thank you very much for the opportunity to participate in the cardiac care of your patient. Patient will follow-up in our office in 2 weeks time for blood pressure check, with 1 of our TRANSFER TABLE OPERATOR HELPER's Marco Melgar. Code Visit Inpatient E&M: 58661 Subs Hosp L2
--- NOTE | 2017-05-16 12:55 | PCM.DC ---
- Discharge Diagnoses Current Active Problems: Current Active and Chronic Problems (Last Reviewed 05/06/17 @ 07:59 by Kimberlee Desai) Shortness of breath (Acute) You will use the following diet at home:: No restrictions Discharge Activity: Return to Normal Activity Allergies/Adverse Reactions: Allergies Latex, Natural Rubber Adverse Reaction (Intermediate, Verified 05/12/17 11:06) UNKNOWN olmesartan [From Benicar] Adverse Reaction (Verified 05/12/17 11:06) Itching Medications to take at Discharge Amlodipine [Norvasc] 5 mg PO DAILY 04/21/13 Fluoxetine [Prozac] 20 mg PO DAILY 04/21/13 Levothyroxine [Synthroid] 88 mcg PO DAILY 04/21/13 Pantoprazole Sodium [Protonix] 40 mg PO BID 04/21/13 Rivaroxaban [Xarelto] 20 mg PO QHS 01/18/16 Magnesium Oxide [Mag-Ox 400] 400 mg PO DAILY 01/13/17 amiodarone 200 mg tablet 200 mg PO DAILY 04/04/17 cholecalciferol (vitamin D3) 2,000 unit capsule 2,000 unit PO DAILY 04/04/17 potassium chloride ER 20 mEq tablet,extended release 40 meq PO BID tab 04/04/17 Carvedilol [Coreg] 12.5 mg PO BID 05/12/17 Furosemide [Lasix] 60 mg PO BIDLX.TCU #60 tab 05/16/17 Metolazone [Zaroxolyn] 2.5 mg PO QWEEK #4 tab 05/16/17 The following prescriptions were given: Metolazone [Zaroxolyn] 2.5 mg PO QWEEK #4 tab Furosemide [Lasix] 60 mg PO BIDLX.TCU #60 tab Primary Care Physician: José Miguel Roy MD [Primary Care Provider] - In 1 Week Proposed Discharge Date: 05/16/17
--- NOTE | 2017-05-16 12:56 | DS.PCM_ITS ---
Discharge Date and Diagnosis Date of Admission: 05/12/17 Date of Discharge: 05/16/17 - Primary Discharge Diagnosis Active and Suspected Problems (Last Reviewed 05/06/17 @ 07:59 by Kimberlee Desai) Shortness of breath (Acute) - Secondary Discharge Diagnosis Chronic Problems (Last Reviewed 05/06/17 @ 07:59 by Kimberlee Desai) Edema (Chronic) Hypokalemia (Chronic) S/P left atrial appendage ligation (Chronic) 02/25/2017 @ [facility] with Dr. Fierro S/P ablation of atrial fibrillation (Chronic) Convergent ablation 02/25/[address] @ [facility] [address] Fierro; Atrial fibrillation (Chronic) ablation 03/03/2017 Anemia (Chronic) HTN (hypertension) (Chronic) GERD (gastroesophageal reflux disease) (Chronic) Hiatal hernia (Chronic) Foley esophagus (Chronic) Morbid obesity with BMI of 45.0-49.9, adult (Chronic) Hospital Course and Treatment Operations: cholecystecomy Summary of Care Provided: This is a 66-year-old female who presented with progressive dyspnea, and her imaging showed pulmonary vascular congestion, bilateral pleural effusion as well as well as fluid collection in her anterior abdomen/ lower chest wall. She was started on IV Lasix drip to the hospital.She has now improved she is being discharged home in a stable condition. 1 Dyspnea ; likely due to acute diastolic congestive heart failure, we will transition to PO Lasix, Metolazone added at 2.5 mg every Friday. 2. Pericardial effusion; echocardiogram showed no tamponade physiology. placed on NSAIDS for possible pericarditis. 3. Fluid collection anterior abdomen/ lower chest wall; Dr Koenig was consulted and he Ramsey that this likely is most likely chronic seroma or resolving hematoma, will monitor at this time. 4. paroxysmal Atrial fibrillation status post maze procedure , the patient is back in sinus, will continue amiodarone , Coreg and anticoagulation with Xarelto. Follow up with Dr. Dewey who is her senior analyst market intelligence as an outpatient. 5 morbid obesity; loss recommended. Exam at the time of discharge; vital signs were stable. He was alert and oriented to time place and person. He did not appear to be any form of distress. S1 and S2 heard no murmur or gallop Lung exam was clear to auscultation with no adventitious sounds. Abdomen was soft nontender with normal bowel sounds. extremity exam did not reveal any edema, palpable pulses bilaterally. Neurologic exam was grossly intact. Discharge Diet: Low fat/ Low Cholesterol Discharge Activity: Return to Normal Activity Home Medications: Medications to take at Discharge Amlodipine [Norvasc] 5 mg PO DAILY 04/21/13 Fluoxetine [Prozac] 20 mg PO DAILY 04/21/13 Levothyroxine [Synthroid] 88 mcg PO DAILY 04/21/13 Pantoprazole Sodium [Protonix] 40 mg PO BID 04/21/13 Rivaroxaban [Xarelto] 20 mg PO QHS 01/18/16 Magnesium Oxide [Mag-Ox 400] 400 mg PO DAILY 01/13/17 amiodarone 200 mg tablet 200 mg PO DAILY 04/04/17 cholecalciferol (vitamin D3) 2,000 unit capsule 2,000 unit PO DAILY 04/04/17 potassium chloride ER 20 mEq tablet,extended release 40 meq PO BID tab Carvedilol [Coreg] 12.5 mg PO BID 05/12/17 Furosemide [Lasix] 60 mg PO BIDLX.TCU #60 tab 05/16/17 Metolazone [Zaroxolyn] 2.5 mg PO QWEEK #4 tab 05/16/17 Following Prescrptions Were Given to Patient: Metolazone [Zaroxolyn] 2.5 mg PO QWEEK #4 tab Furosemide [Lasix] 60 mg PO BIDLX.TCU #60 tab Primary Care Physician: José Miguel Roy MD [Primary Care Provider] - In 1 Week Disposition: Home Patient Condition:: Good Meaningful Use Info Meaningful Use Diagnoses (Choose all that apply): None applicable Code Visit Inpatient E&M: 84735 Disch Hosp
== END 2017-05-16 12:55 | disposition home or self-care (01) ==
LOC: ED 11:31 → PCU 16:28
PROVIDERS: Admitting Provider Internal Medicine; Emergency Provider Emergency Medicine; Family Provider Family Medicine; PCP Family Medicine; Visit Provider Internal Medicine
DX: R06.09 Other forms of dyspnea (principal); I11.0 Hypertensive heart disease with heart failure; I50.31 Acute diastolic (congestive) heart failure; J44.9 Chronic obstructive pulmonary disease, unspecified; I31.3 Pericardial effusion (noninflammatory); E66.01 Morbid (severe) obesity due to excess calories; I48.0 Paroxysmal atrial fibrillation; E87.6 Hypokalemia; K21.9 Gastro-esophageal reflux disease without esophagitis; K44.9 Diaphragmatic hernia without obstruction or gangrene; G47.33 Obstructive sleep apnea (adult) (pediatric); E03.9 Hypothyroidism, unspecified; D63.8 Anemia in other chronic diseases classified elsewhere; K22.70 Barrett's esophagus without dysplasia; Z68.43 Body mass index [BMI] 50.0-59.9, adult; Z71.3 Dietary counseling and surveillance; Z79.899 Other long term (current) drug therapy; Z79.01 Long term (current) use of anticoagulants
CPT/HCPCS: 36415; 71046; 71275; 80048; 83880; 84484; 85025; 85379; 93005; 93306; 96361; 96374; 96376; 99218; 99285; J7030; Q9967; A4216; G0378; J1940

== ENCOUNTER → 2017-05-30 10:26 | Outpatient (CLI) | payer OTHER, SELFPAY ==
[2017-05-30 12:55] LABS: AST(SGOT) 16 U/L (15-37); Alanine Aminotransfer ALT/SGPT 19 U/L (13-56); Albumin, Serum 3.3 g/dL (3.2-5.0); Alkaline Phosphatase 71 U/L (45-117); Anion Gap 11 (5-15); BUN 26 mg/dL (7-18); BUN/Creat Ratio 18.7 RATIO (10-20); Bilirubin, Direct 0.18 mg/dL (0.00-0.30); Calcium,Total 8.6 mg/dL (8.5-10.1); Chloride 96 mmol/L (98-107); Cholesterol 150 mg/dL (200); Creatinine, Serum 1.39 mg/dL (0.55-1.02); EST Glomerular Filtration Rate 41 mL/min (>60); Est Glom Filt Rate - Afr Amer 49 mL/min (>60); Globulin 4.4 g/dL (2.2-4.2); Glucose 113 mg/dL (74-106); High Density Lipoprotein 47 mg/dL; Potassium 2.9 mmol/L (3.5-5.1); Protein, Total 7.7 g/dL (6.4-8.2); Sodium Level 138 mmol/L (136-145); Triglycerides 87 mg/dL; Very Low Density Lipoprotein 17 mg/dL (5-40)
== END ==
PROVIDERS: Family Provider Family Medicine; PCP Family Medicine; Visit Provider Nurse Practitioner Family
DX: J81.1 Chronic pulmonary edema (principal); E87.6 Hypokalemia; I48.1 Persistent atrial fibrillation; R06.83 Snoring
CPT/HCPCS: 36415; 80048; 80061; 80076

== ENCOUNTER → 2017-06-12 10:13 | Outpatient (CLI) | payer OTHER, SELFPAY ==
[2017-06-12 10:54] LABS: Anion Gap 10 (5-15); BUN 36 mg/dL (7-18); Calcium,Total 8.6 mg/dL (8.5-10.1); Chloride 102 mmol/L (98-107); EST Glomerular Filtration Rate 30 mL/min (>60); Est Glom Filt Rate - Afr Amer 36 mL/min (>60); Glucose 94 mg/dL (74-106); Potassium 3.4 mmol/L (3.5-5.1); Sodium Level 142 mmol/L (136-145)
== END ==
PROVIDERS: Family Provider Family Medicine; PCP Family Medicine; Visit Provider Nurse Practitioner Family
DX: E87.6 Hypokalemia (principal); I48.91 Unspecified atrial fibrillation; I11.0 Hypertensive heart disease with heart failure; I50.31 Acute diastolic (congestive) heart failure; J81.1 Chronic pulmonary edema; Z86.79 Personal history of other diseases of the circulatory system; Z98.890 Other specified postprocedural states
CPT/HCPCS: 36415; 80048

== ENCOUNTER → 2017-07-14 09:44 | Outpatient (CLI) | payer OTHER, SELFPAY ==
[2017-07-14 10:35] LABS: Anion Gap 7 (5-15); BUN 19 mg/dL (7-18); Calcium,Total 8.3 mg/dL (8.5-10.1); Chloride 104 mmol/L (98-107); EST Glomerular Filtration Rate 59 mL/min (>60); Est Glom Filt Rate - Afr Amer 72 mL/min (>60); Glucose 102 mg/dL (74-106); Potassium 4.1 mmol/L (3.5-5.1); Sodium Level 139 mmol/L (136-145)
== END ==
PROVIDERS: Family Provider Family Medicine; PCP Family Medicine; Visit Provider Nurse Practitioner Family
DX: E87.6 Hypokalemia (principal)
CPT/HCPCS: 36415; 80048

== ENCOUNTER → 2017-10-06 14:06 | Outpatient (CLI) | payer OTHER, SELFPAY ==
[2017-10-06 16:06] LABS: Anion Gap 6 (5-15); BUN 19 mg/dL (7-18); BUN/Creat Ratio 16.4 RATIO (10-20); Chloride 99 mmol/L (98-107); Creatinine, Serum 1.16 mg/dL (0.55-1.02); EST Glomerular Filtration Rate 50 mL/min (>60); Est Glom Filt Rate - Afr Amer 60 mL/min (>60); Glucose 86 mg/dL (74-106); Magnesium 1.8 mg/dL (1.6-2.6); Potassium 2.8 mmol/L (3.5-5.1); Sodium Level 137 mmol/L (136-145); T4 Free Direct 1.47 ng/dL (0.76-1.46); Thyroid Stim Hormone (TSH) 1.49 uIU/mL (0.358-3.74)
== END ==
PROVIDERS: Family Provider Family Medicine; PCP Family Medicine; Visit Provider Family Medicine
DX: I48.91 Unspecified atrial fibrillation (principal); I50.9 Heart failure, unspecified; E03.9 Hypothyroidism, unspecified
CPT/HCPCS: 36415; 80048; 83735; 84439; 84443

== ENCOUNTER → 2017-10-13 10:05 | Outpatient (CLI) | payer OTHER, SELFPAY ==
[2017-10-13 12:02] LABS: Anion Gap 7 (5-15); BUN 20 mg/dL (7-18); BUN/Creat Ratio 19.2 RATIO (10-20); Calcium,Total 8.5 mg/dL (8.5-10.1); Chloride 105 mmol/L (98-107); Creatinine, Serum 1.04 mg/dL (0.55-1.02); EST Glomerular Filtration Rate 57 mL/min (>60); Est Glom Filt Rate - Afr Amer 68 mL/min (>60); Glucose 88 mg/dL (74-106); Potassium 4.3 mmol/L (3.5-5.1); Sodium Level 142 mmol/L (136-145)
== END ==
PROVIDERS: Family Provider Family Medicine; PCP Family Medicine; Visit Provider Family Medicine
DX: E87.6 Hypokalemia (principal)
CPT/HCPCS: 36415; 80048

== ENCOUNTER → 2017-11-03 10:29 | Outpatient (CLI) | payer OTHER, SELFPAY ==
[2017-11-03 13:18] LABS: Anion Gap 10 (5-15); BUN 18 mg/dL (7-18); BUN/Creat Ratio 17.3 RATIO (10-20); Calcium,Total 8.4 mg/dL (8.5-10.1); Chloride 107 mmol/L (98-107); Creatinine, Serum 1.04 mg/dL (0.55-1.02); EST Glomerular Filtration Rate 57 mL/min (>60); Est Glom Filt Rate - Afr Amer 68 mL/min (>60); Glucose 94 mg/dL (74-106); Potassium 4.4 mmol/L (3.5-5.1); Sodium Level 143 mmol/L (136-145)
== END ==
PROVIDERS: Family Provider Family Medicine; PCP Family Medicine; Visit Provider Family Medicine
DX: E87.6 Hypokalemia (principal)
CPT/HCPCS: 36415; 80048

== ENCOUNTER 2017-11-08 08:52 | Emergency (ER) | payer OTHER, SELFPAY ==
[2017-11-08 08:52] VITALS: BP 165/95; PULSE 57; RESP 18; TEMP 36.9; O2SAT 95; BMI 53.3
--- NOTE | 2017-11-08 09:09 | ED.DCSUM_ITS ---
- ER Visit Summary Date of Service: 11/08/17 Chief Complaint: Fever, right leg redness History of Present Illness: The patient is a 66 F who states that her right leg was red yesterday. It is worse when she woke up this morning. Earlier in the week she had temperatures up to 104?F. She took Tylenol and the fevers have since went away. She said the right leg is not really painful but it is itching. No history of cellulitis in the past. Patient does have a history of atrial fibrillation and is currently on Xarelto. Physical Examination: Vital signs are reviewed. Heart is regular rate and rhythm. Lungs are clear to auscultation. Abdomen is soft and nontender. Lower extremities reveal right leg redness and patches from the knee to the ankle. There is a nonhealing wound on the posterior leg. Pulses are equal. There is mild right leg swelling. Test Results: White blood cell count normal. Hemoglobin 9.5. Creatinine 1.42 Emergency Department Course and Treatment: Patient has cellulitis. Her white count is normal. She would like to be treated as an outpatient. I will give her Keflex. She will put on her compression stockings. She will follow-up with her PCP Treatment Plan: [] Disposition: Discharge Impression: Right lower extremity cellulitis This note was generated with [employer] dictation software. It may contain incorrect words, spelling, and punctuation that were not noted in review of the chart prior to signing ED Disposition - Plan for ED Patient: Chief Complaint: Cellulitis Referrals: José Miguel Roy MD [Primary Care Provider] -
[2017-11-08 09:45] LABS: Absolute Lymphocyte Count 0.98 X10^3/ul (0.83-4.51); Absolute Neutrophil Count 5.1 X10^3/uL (2.0-7.7); Basophil# 0.03 X10^3/uL; Basophil% 0.4 % (0-1); Eosinophil# 0.08 X10^3/uL; Eosinophils% 1.2 % (0-5); Hematocrit 31.2 % (37-47); Hemoglobin 9.5 g/dl (12.0-15.0); Lymphocyte # 0.98 X10^3/ul (4.0); Lymphocyte % 14.1 % (19-41); Mean Corp Hgb Conc 30.4 g/gl (32-36); Mean Corpuscular Hgb 24.1 pg (27.0-32.0); Mean Platelet Vol. 9.9 fl (6.2-12.0); Monocyte# 0.69 X10^3/uL; Monocyte% 9.9 % (0-10); Neutrophil # 5.12 X10^3/uL (2.7-7.7); Neutrophil % 73.8 % (47-70); POSITIVE COUNT NO; POSITIVE DIFFERENTIAL NO; POSITIVE MORPHOLOGY NO; Platelet Count 271 K/mm3 (150-450); RBC Distribution Width CV 16.9 % (11.6-14.6); RBC Distribution Width SD 47.6 fl (35.1-43.9); Red Blood Count 3.95 M/mm3 (4.2-5.4); White Blood Count 6.9 K/mm3 (4.4-11.0)
[2017-11-08 09:56] LABS: Anion Gap 8 (5-15); BUN 28 mg/dL (7-18); BUN/Creat Ratio 19.7 RATIO (10-20); Calcium,Total 8.5 mg/dL (8.5-10.1); Chloride 105 mmol/L (98-107); Creatinine, Serum 1.42 mg/dL (0.55-1.02); EST Glomerular Filtration Rate 40 mL/min (>60); Est Glom Filt Rate - Afr Amer 48 mL/min (>60); Estimated Creatinine Clearance 34.56 ml/min; Glucose 105 mg/dL (74-106); Potassium 4.4 mmol/L (3.5-5.1); Sodium Level 141 mmol/L (136-145)
--- NOTE | 2017-11-08 10:02 | ED.DEP ---
ED Disposition - Plan for ED Patient: Disposition: Home or Assisted Living Chief Complaint: Cellulitis Instructions: Discharge Instructions for Cellulitis Prescriptions: Cephalexin [Keflex] 500 mg PO Q6 #28 cap Referrals: José Miguel Roy MD [Primary Care Provider] -
[2017-11-08 10:08] VITALS: PULSE 59; RESP 16; O2SAT 97
== END 2017-11-08 10:09 | disposition home or self-care (01) ==
PROVIDERS: Emergency Provider Emergency Medicine; Family Provider Family Medicine; PCP Family Medicine
DX: L03.115 Cellulitis of right lower limb (principal); S81.801A Unspecified open wound, right lower leg, initial encounter; X58.XXXA Exposure to other specified factors, initial encounter; Y93.9 Activity, unspecified; Y92.9 Unspecified place or not applicable; Y99.9 Unspecified external cause status; I48.91 Unspecified atrial fibrillation; I10 Essential (primary) hypertension; E66.9 Obesity, unspecified; Z79.01 Long term (current) use of anticoagulants; Z79.899 Other long term (current) drug therapy
CPT/HCPCS: 36415; 80048; 85025; 99282

== ENCOUNTER → 2017-11-18 09:45 | Outpatient (CLI) | payer OTHER, SELFPAY ==
[2017-11-18 11:52] LABS: Absolute Lymphocyte Count 1.28 X10^3/ul (0.83-4.51); Absolute Neutrophil Count 3.8 X10^3/uL (2.0-7.7); Basophil# 0.03 X10^3/uL; Basophil% 0.5 % (0-1); Eosinophil# 0.14 X10^3/uL; Eosinophils% 2.5 % (0-5); Hematocrit 33.9 % (37-47); Hemoglobin 9.8 g/dl (12.0-15.0); Lymphocyte # 1.28 X10^3/ul (4.0); Lymphocyte % 22.7 % (19-41); Mean Corp Hgb Conc 28.9 g/gl (32-36); Mean Corpuscular Volume 79.6 fL (81-99); Mean Platelet Vol. 9.4 fl (6.2-12.0); Monocyte# 0.36 X10^3/uL; Monocyte% 6.4 % (0-10); Neutrophil # 3.81 X10^3/uL (2.7-7.7); Neutrophil % 67.7 % (47-70); POSITIVE COUNT NO; POSITIVE DIFFERENTIAL NO; POSITIVE MORPHOLOGY NO; Platelet Count 343 K/mm3 (150-450); RBC Distribution Width CV 16.8 % (11.6-14.6); RBC Distribution Width SD 48.2 fl (35.1-43.9); Red Blood Count 4.26 M/mm3 (4.2-5.4); White Blood Count 5.6 K/mm3 (4.4-11.0)
[2017-11-18 12:05] LABS: Anion Gap 6 (5-15); BUN 21 mg/dL (7-18); BUN/Creat Ratio 17.2 RATIO (10-20); Calcium,Total 8.8 mg/dL (8.5-10.1); Chloride 106 mmol/L (98-107); Creatinine, Serum 1.22 mg/dL (0.55-1.02); EST Glomerular Filtration Rate 47 mL/min (>60); Est Glom Filt Rate - Afr Amer 57 mL/min (>60); Ferritin 17 ng/mL (8-252); Glucose 135 mg/dL (74-106); Iron 37 ug/dL (50-170); Potassium 3.6 mmol/L (3.5-5.1); Sodium Level 142 mmol/L (136-145)
== END ==
PROVIDERS: Family Provider Family Medicine; PCP Family Medicine; Visit Provider Family Medicine
DX: E87.6 Hypokalemia (principal); N17.9 Acute kidney failure, unspecified; D50.9 Iron deficiency anemia, unspecified
CPT/HCPCS: 36415; 80048; 82728; 83540; 85025

== ENCOUNTER → 2017-12-11 09:27 | Outpatient (CLI) | payer OTHER, SELFPAY ==
[2017-12-11 11:40] LABS: AST(SGOT) 16 U/L (15-37); Alanine Aminotransfer ALT/SGPT 19 U/L (13-56); Albumin, Serum 3.2 g/dL (3.2-5.0); Alkaline Phosphatase 75 U/L (45-117); Anion Gap 9 (5-15); BUN 25 mg/dL (7-18); BUN/Creat Ratio 21.6 RATIO (10-20); Bilirubin, Direct 0.14 mg/dL (0.00-0.30); Calcium,Total 8.7 mg/dL (8.5-10.1); Chloride 102 mmol/L (98-107); Cholesterol 195 mg/dL (200); Creatinine, Serum 1.16 mg/dL (0.55-1.02); EST Glomerular Filtration Rate 50 mL/min (>60); Est Glom Filt Rate - Afr Amer 60 mL/min (>60); Globulin 4.3 g/dL (2.2-4.2); Glucose 106 mg/dL (74-106); High Density Lipoprotein 53 mg/dL; Potassium 3.8 mmol/L (3.5-5.1); Protein, Total 7.5 g/dL (6.4-8.2); Sodium Level 143 mmol/L (136-145); Triglycerides 148 mg/dL; Very Low Density Lipoprotein 30 mg/dL (5-40)
== END ==
PROVIDERS: Family Provider Family Medicine; PCP Family Medicine; Visit Provider Internal Medicine Cardiovascular Disease
DX: E87.6 Hypokalemia (principal); I50.31 Acute diastolic (congestive) heart failure; E78.5 Hyperlipidemia, unspecified
CPT/HCPCS: 36415; 80048; 80061; 80076

== ENCOUNTER → 2018-01-07 11:19 | Outpatient (CLI) | payer OTHER, SELFPAY ==
[2018-01-07 15:36] LABS: Absolute Neutrophil Count 2.5 X10^3/uL (2.0-7.7); Basophil# 0.03 X10^3/uL; Basophil% 0.7 % (0-1); Eosinophil# 0.16 X10^3/uL; Eosinophils% 3.9 % (0-5); Hematocrit 40.1 % (37-47); Hemoglobin 11.9 g/dl (12.0-15.0); Lymphocyte % 22.1 % (19-41); Mean Corp Hgb Conc 29.7 g/gl (32-36); Mean Corpuscular Hgb 25.4 pg (27.0-32.0); Mean Corpuscular Volume 85.5 fL (81-99); Mean Platelet Vol. 10.5 fl (6.2-12.0); Monocyte% 12.3 % (0-10); Neutrophil # 2.49 X10^3/uL (2.7-7.7); Platelet Count 250 K/mm3 (150-450); RBC Distribution Width CV 19.2 % (11.6-14.6); RBC Distribution Width SD 60.3 fl (35.1-43.9); Red Blood Count 4.69 M/mm3 (4.2-5.4); White Blood Count 4.1 K/mm3 (4.4-11.0)
[2018-01-07 15:38] LABS: POSITIVE COUNT NO; POSITIVE DIFFERENTIAL NO; POSITIVE MORPHOLOGY NO
[2018-01-07 16:02] LABS: Ferritin 12 ng/mL (8-252); Iron 226 ug/dL (50-170)
== END ==
PROVIDERS: Family Provider Family Medicine; PCP Family Medicine; Visit Provider Family Medicine
DX: D50.9 Iron deficiency anemia, unspecified (principal)
CPT/HCPCS: 36415; 82728; 83540; 85025

== ENCOUNTER → 2018-03-27 10:36 | Outpatient (CLI) | payer OTHER, SELFPAY ==
[2018-02-27 09:20] VITALS: BMI 52.4
[2018-03-27 11:42] LABS: BUN 22 mg/dL (7-18); Creatinine, Serum 1.17 mg/dL (0.55-1.02); Glucose 91 mg/dL (74-106)
[2018-03-27 11:43] LABS: Anion Gap 7 (5-15); BUN/Creat Ratio 18.8 RATIO (10-20); Calcium,Total 8.6 mg/dL (8.5-10.1); Chloride 107 mmol/L (98-107); EST Glomerular Filtration Rate 49 mL/min (>60); Est Glom Filt Rate - Afr Amer 60 mL/min (>60); Magnesium 1.7 mg/dL (1.6-2.6); Potassium 3.6 mmol/L (3.5-5.1); Sodium Level 142 mmol/L (136-145)
== END ==
PROVIDERS: Family Provider Family Medicine; PCP Family Medicine; Referring Provider Nurse Practitioner Family; Visit Provider Nurse Practitioner Family
DX: I48.1 Persistent atrial fibrillation (principal); I27.21 Secondary pulmonary arterial hypertension; E87.6 Hypokalemia; I10 Essential (primary) hypertension; R60.9 Edema, unspecified; K22.70 Barrett's esophagus without dysplasia; K21.9 Gastro-esophageal reflux disease without esophagitis
CPT/HCPCS: 36415; 80048; 83735

== ENCOUNTER → 2018-05-22 08:01 | Outpatient (CLI) | payer MEDICARE, OTHER, SELFPAY ==
[2018-05-08 13:55] VITALS: BMI 52.8
--- NOTE | 2018-05-22 08:06 | ECHOD_ITS ---
Reason For Study: AFIB Procedure This was a 2D Doppler, Color Flow transthoracic echocardiogram. Exam performed in department. Left Ventricle Mildly dilated left ventricle. The estimated ejection fraction is 50-55 %. Stage 1 diastolic dysfunction. There is mild global hypokinesis of the left ventricle. Right Ventricle Moderately dilated right ventricle. Normal systolic function. Atria The left atrium is severely enlarged. The right atrium is severely enlarged. Normal atrial septum. Mitral Valve The mitral valve is structurally normal. No prolapse or stenosis seen. Tricuspid Valve Normal tricuspid valve. Moderately severe (3+) tricuspid valve insufficiency. Right ventricular systolic pressure estimated to be 49 mmHg. Moderate pulmonary hypertension. Aortic Valve Normal aortic valve. Trisinus/trileaflet aortic valve. Pulmonic Valve Normal pulmonic valve. Trivial pulmonic valve insufficiency. Great Vessels Normal aortic root. Normal arch. The inferior vena cava is dilated. Inferior vena cava collapse with sniff. Pericardium/Pleural No pericardial effusion. MMode/2D Measurements & Calculations LVIDd: 5.0 cm IVSd: 0.79 cm Ao root diam: 3.3 cm LVIDs: 3.6 cm LVPWd: 0.75 cm RVDd: 4.1 cm FS: 28.6 % LAV(MOD-bp): 113.6 ml EDV(MOD-sp4): 123.3 ml EDV(MOD-sp2): 105.0 ml LAV(MOD-bp) Indexed: 48.9 ml/m2 ESV(MOD-sp4): 67.0 ml EF(MOD-sp2): 49.8 % LAV(MOD-sp2): 82.2 ml EF(MOD-sp4): 45.7 % LAV(MOD-sp4): 132.3 ml SV(MOD-sp4): 56.3 ml SV(MOD-sp2): 52.3 ml LA A4 area: 34.9 cm2 LA dimension(2D): 5.0 cm RA A4 area: 24.5 cm2 Time Measurements MV dec time: 0.16 sec Doppler Measurements & Calculations MV E max kike: 135.4 cm/sec Lat Peak E' Kike: 14.1 cm/sec Med Peak E' Kike: 7.4 cm/sec MV A max kike: 57.3 cm/sec E/E' lat: 9.6 E/E' med: 18.2 MV E/A: 2.4 Ao V2 max: 160.5 cm/sec LV V1 max: 67.7 cm/sec PA V2 max: 115.1 cm/sec Ao max P.3 mmHg LV V1 max P.8 mmHg PI end-d kike: 148.5 cm/sec TR max kike: 296.3 cm/sec TR max P.2 mmHg Interpretation Summary Mildly dilated left ventricle. The estimated ejection fraction is 50-55 %. Stage 1 diastolic dysfunction. There is mild global hypokinesis of the left ventricle. Moderately dilated right ventricle. The left atrium is severely enlarged. The right atrium is severely enlarged. Moderately severe (3+) tricuspid valve insufficiency. Right ventricular systolic pressure estimated to be 49 mmHg. Moderate pulmonary hypertension. Compared to echo report dated 05/12/2017, LV Function is slightly worse, but RVSP has improved from 56 to 49 mm Hg. Ordering Physician: Derrek Dewey Referring Physician: ELEANOR KOCH Performed By: Lucie Porter, RDCS, RVT
== END ==
PROVIDERS: Family Provider Family Medicine; PCP Family Medicine; Referring Provider Internal Medicine Cardiovascular Disease; Visit Provider Internal Medicine Cardiovascular Disease
DX: I48.91 Unspecified atrial fibrillation (principal); I48.92 Unspecified atrial flutter; Z79.899 Other long term (current) drug therapy
CPT/HCPCS: 93306

== ENCOUNTER → 2018-07-15 10:06 | Outpatient (CLI) | payer MEDICARE, OTHER, SELFPAY ==
[2018-05-08 13:55] VITALS: BMI 52.8
[2018-07-15 12:53] LABS: Absolute Lymphocyte Count 1.07 X10^3/ul (0.83-4.51); Absolute Neutrophil Count 3.1 X10^3/uL (2.0-7.7); Basophil# 0.03 X10^3/uL; Basophil% 0.6 % (0-1); Eosinophil# 0.17 X10^3/uL; Eosinophils% 3.5 % (0-5); Hemoglobin 12.2 g/dl (12.0-15.0); Lymphocyte # 1.07 X10^3/ul (4.0); Mean Corp Hgb Conc 31.3 g/gl (32-36); Mean Corpuscular Volume 83.2 fL (81-99); Mean Platelet Vol. 10.7 fl (6.2-12.0); Monocyte# 0.48 X10^3/uL; Monocyte% 9.9 % (0-10); Neutrophil # 3.11 X10^3/uL (2.7-7.7); Platelet Count 305 K/mm3 (150-450); RBC Distribution Width CV 14.7 % (11.6-14.6); RBC Distribution Width SD 44.1 fl (35.1-43.9); Red Blood Count 4.69 M/mm3 (4.2-5.4); White Blood Count 4.9 K/mm3 (4.4-11.0)
[2018-07-15 12:58] LABS: POSITIVE COUNT NO; POSITIVE DIFFERENTIAL NO; POSITIVE MORPHOLOGY NO
[2018-07-15 13:04] LABS: ALB/GLOB Ratio 0.9 RATIO (0.9-2.4); AST(SGOT) 19 U/L (15-37); Alanine Aminotransfer ALT/SGPT 21 U/L (13-56); Albumin, Serum 3.5 g/dL (3.2-5.0); Alkaline Phosphatase 86 U/L (45-117); Anion Gap 5 (5-15); BUN 22 mg/dL (7-18); BUN/Creat Ratio 18.6 RATIO (10-20); Bilirubin, Direct 0.14 mg/dL (0.00-0.30); Calcium,Total 8.8 mg/dL (8.5-10.1); Chloride 101 mmol/L (98-107); Cholesterol 222 mg/dL (200); Creatinine, Serum 1.18 mg/dL (0.55-1.02); EST Glomerular Filtration Rate 49 mL/min (>60); Est Glom Filt Rate - Afr Amer 59 mL/min (>60); Ferritin 7 ng/mL (8-252); Globulin 4.1 g/dL (2.2-4.2); Glucose 102 mg/dL (74-106); High Density Lipoprotein 62 mg/dL; Iron 50 ug/dL (50-170); Magnesium 1.8 mg/dL (1.6-2.6); Potassium 3.4 mmol/L (3.5-5.1); Protein, Total 7.6 g/dL (6.4-8.2); Sodium Level 139 mmol/L (136-145); T4 Free Direct 1.39 ng/dL (0.76-1.46); Thyroid Stim Hormone (TSH) 1.45 uIU/mL (0.358-3.74); Triglycerides 84 mg/dL; Very Low Density Lipoprotein 17 mg/dL (5-40)
== END ==
PROVIDERS: Nurse Practitioner Family; Family Provider Family Medicine; PCP Family Medicine; Visit Provider Family Medicine
DX: D50.9 Iron deficiency anemia, unspecified (principal); I48.1 Persistent atrial fibrillation; I10 Essential (primary) hypertension; E03.9 Hypothyroidism, unspecified; E78.5 Hyperlipidemia, unspecified; E83.42 Hypomagnesemia; E87.6 Hypokalemia
CPT/HCPCS: 36415; 80053; 80061; 82248; 82728; 83540; 83735; 84439; 84443; 85025

== ENCOUNTER → 2018-10-02 10:13 | Outpatient (CLI) | payer MEDICARE, OTHER, SELFPAY ==
[2018-05-08 13:55] VITALS: BMI 52.8
[2018-10-02 12:31] LABS: AST(SGOT) 18 U/L (15-37); Alanine Aminotransfer ALT/SGPT 21 U/L (13-56); Albumin, Serum 3.4 g/dL (3.2-5.0); Alkaline Phosphatase 89 U/L (45-117); Bilirubin, Direct 0.14 mg/dL (0.00-0.30); Cholesterol 196 mg/dL (200); Globulin 4.1 g/dL (2.2-4.2); High Density Lipoprotein 54 mg/dL; Protein, Total 7.5 g/dL (6.4-8.2); Triglycerides 146 mg/dL; Very Low Density Lipoprotein 29 mg/dL (5-40)
== END ==
PROVIDERS: Family Provider Family Medicine; PCP Family Medicine; Visit Provider Nurse Practitioner Family
DX: E78.5 Hyperlipidemia, unspecified (principal)
CPT/HCPCS: 36415; 80061; 80076

== ENCOUNTER → 2018-10-12 10:46 | Outpatient (CLI) | payer OTHER, MEDICARE, SELFPAY ==
[2018-05-08 13:55] VITALS: BMI 52.8
[2018-10-12 12:57] LABS: Anion Gap 7 (5-15); BUN 21 mg/dL (7-18); BUN/Creat Ratio 21.5 RATIO (10-20); Calcium,Total 8.6 mg/dL (8.5-10.1); Chloride 107 mmol/L (98-107); Creatinine, Serum 0.98 mg/dL (0.55-1.02); EST Glomerular Filtration Rate 61 mL/min (>60); Est Glom Filt Rate - Afr Amer 73 mL/min (>60); Glucose 75 mg/dL (74-106); Potassium 3.8 mmol/L (3.5-5.1); Sodium Level 144 mmol/L (136-145)
== END ==
PROVIDERS: Family Provider Family Medicine; PCP Family Medicine; Referring Provider Nurse Practitioner Family; Visit Provider Nurse Practitioner Family
DX: E87.6 Hypokalemia (principal); I10 Essential (primary) hypertension
CPT/HCPCS: 36415; 80048

== ENCOUNTER → 2019-01-27 14:32 | Outpatient (CLI) | payer OTHER, MEDICARE, SELFPAY ==
[2018-12-10 14:33] VITALS: BMI 54.2
[2019-01-27 15:52] LABS: Absolute Lymphocyte Count 1.31 X10^3/uL (0.83-4.51); Absolute Neutrophil Count 3.7 X10^3/uL (2.0-7.7); Basophil# 0.07 X10^3/uL; Basophil% 1.2 % (0-1); Eosinophil# 0.21 X10^3/uL; Eosinophils% 3.5 % (0-5); Hemoglobin 11.5 g/dL (12.0-15.0); Lymphocyte # 1.31 X10^3/ul (4.0); Lymphocyte % 22.1 % (19-41); Mean Corp Hgb Conc 30.3 g/dL (32-36); Mean Corpuscular Hgb 24.3 pg (27.0-32.0); Mean Corpuscular Volume 80.3 fL (81-99); Mean Platelet Vol. 10.8 fl (6.2-12.0); Monocyte# 0.59 X10^3/uL; Monocyte% 9.9 % (0-10); NRBC Flagged by Analyzer 0 % (0-5); Neutrophil # 3.74 X10^3/uL (2.7-7.7); Platelet Count 321 K/mm3 (150-450); RBC Distribution Width CV 15.8 % (11.6-14.6); RBC Distribution Width SD 46.1 fl (35.1-43.9); Red Blood Count 4.73 M/mm3 (4.2-5.4); White Blood Count 5.9 K/mm3 (4.4-11.0)
[2019-01-27 16:06] LABS: ALB/GLOB Ratio 0.9 RATIO (0.9-2.4); AST(SGOT) 16 U/L (15-37); Alanine Aminotransfer ALT/SGPT 22 U/L (13-56); Albumin, Serum 3.9 g/dL (3.2-5.0); Alkaline Phosphatase 77 U/L (45-117); Anion Gap 7 (5-15); BUN 25 mg/dL (7-18); BUN/Creat Ratio 21.6 RATIO (10-20); Calcium,Total 8.9 mg/dL (8.5-10.1); Chloride 102 mmol/L (98-107); Cholesterol 174 mg/dL (200); Creatinine, Serum 1.16 mg/dL (0.55-1.02); EST Glomerular Filtration Rate 50 mL/min (>60); Est Glom Filt Rate - Afr Amer 60 mL/min (>60); Globulin 4.2 g/dL (2.2-4.2); Glucose 105 mg/dL (74-106); High Density Lipoprotein 55 mg/dL; Magnesium 1.7 mg/dL (1.6-2.6); Potassium 3.5 mmol/L (3.5-5.1); Protein, Total 8.1 g/dL (6.4-8.2); Sodium Level 142 mmol/L (136-145); Thyroid Stim Hormone (TSH) 0.22 uIU/mL (0.358-3.74); Triglycerides 91 mg/dL; Very Low Density Lipoprotein 18 mg/dL (5-40)
== END ==
PROVIDERS: Family Provider Family Medicine; PCP Family Medicine; Visit Provider Family Medicine
DX: D50.9 Iron deficiency anemia, unspecified (principal); E03.9 Hypothyroidism, unspecified; E83.42 Hypomagnesemia; I48.91 Unspecified atrial fibrillation
CPT/HCPCS: 36415; 80053; 80061; 83735; 84439; 84443; 85025

== ENCOUNTER → 2019-02-17 10:56 | Outpatient (CLI) | payer OTHER, MEDICARE, SELFPAY ==
[2018-02-27 09:20] VITALS: BMI 52.4
[2018-12-10 14:33] VITALS: BMI 54.2
--- NOTE | 2019-02-17 10:58 | BI_ITS ---
MAMMOGRAPHY - BILATERAL SCREENING REASON FOR EXAM: Female, 68 years old. Routine annual screening examination. PERTINENT HISTORY: Remote left excisional breast biopsy. Grandmother with breast cancer. Aunt with breast cancer. TECHNIQUE: Digital bilateral breast mandeep (3D mammographic acquisition) in the CC and MLO projections. 2-D mediolateral oblique (MLO) and craniocaudad (CC) views of both breasts were obtained. CAD: Full Field Digital Mammography with Computer Added Detection was performed. COMPARISON: Comparison is made with prior study dated December 13, 2015 and June 21, 2014. FINDINGS: Breast Composition: There are scattered areas of fibroglandular density. There are no dominant masses or suspicious calcifications. Stable small benign-appearing bilateral axillary lymph nodes. No other significant abnormalities are identified. There has been no significant change since the prior study. BI/SCREEN MAMM (CAD) W/MANDEEP BILAT IMPRESSION: Stable bilateral screening mammogram. Yearly follow-up mammogram recommended. (A) ASSESSMENT CATEGORY: BIRADS Category 2: Benign. A letter regarding these results will be sent to the patient by the facility within 30 days. Approximately 10% of breast cancers are not detected by mammography. A normal mammogram should not delay biopsy of a clinically suspicious abnormality. [id number] Electronically Signed: Michael Odonnell, at 12:47 EST , Service support ,
== END ==
PROVIDERS: Family Provider Family Medicine; PCP Family Medicine; Referring Provider Family Medicine; Visit Provider Family Medicine
DX: Z12.31 Encounter for screening mammogram for malignant neoplasm of breast (principal); Z80.3 Family history of malignant neoplasm of breast
CPT/HCPCS: 77063; 77067

== ENCOUNTER → 2019-05-19 14:01 | Outpatient (CLI) | payer OTHER, MEDICARE, SELFPAY ==
[2018-12-10 14:33] VITALS: BMI 54.2
[2019-05-19 16:37] LABS: Absolute Lymphocyte Count 1.18 X10^3/uL (0.83-4.51); Absolute Neutrophil Count 2.5 X10^3/uL (2.0-7.7); Basophil# 0.04 X10^3/uL; Basophil% 0.9 % (0-1); Eosinophil# 0.19 X10^3/uL; Eosinophils% 4.4 % (0-5); Hematocrit 40.6 % (37-47); Hemoglobin 12.2 g/dL (12.0-15.0); Lymphocyte # 1.18 X10^3/ul (4.0); Lymphocyte % 27.1 % (19-41); Mean Corpuscular Hgb 25.9 pg (27.0-32.0); Mean Corpuscular Volume 86.2 fL (81-99); Mean Platelet Vol. 11.5 fl (6.2-12.0); Monocyte# 0.44 X10^3/uL; Monocyte% 10.1 % (0-10); NRBC Flagged by Analyzer 0 % (0-5); Neutrophil # 2.49 X10^3/uL (2.7-7.7); Platelet Count 254 K/mm3 (150-450); RBC Distribution Width CV 19.2 % (11.6-14.6); RBC Distribution Width SD 60.4 fl (35.1-43.9); Red Blood Count 4.71 M/mm3 (4.2-5.4); White Blood Count 4.4 K/mm3 (4.4-11.0)
[2019-05-19 16:40] LABS: ALB/GLOB Ratio 0.9 RATIO (0.9-2.4); AST(SGOT) 17 U/L (15-37); Alanine Aminotransfer ALT/SGPT 25 U/L (13-56); Albumin, Serum 3.7 g/dL (3.2-5.0); Alkaline Phosphatase 66 U/L (45-117); Anion Gap 5 (5-15); BUN 21 mg/dL (7-18); BUN/Creat Ratio 19.8 RATIO (10-20); Calcium,Total 9.1 mg/dL (8.5-10.1); Chloride 104 mmol/L (98-107); Creatinine, Serum 1.06 mg/dL (0.55-1.02); EST Glomerular Filtration Rate 55 mL/min (>60); Est Glom Filt Rate - Afr Amer 67 mL/min (>60); Ferritin 15 ng/mL (8-252); Globulin 4.2 g/dL (2.2-4.2); Glucose 99 mg/dL (74-106); Iron 247 ug/dL (50-170); Magnesium 1.8 mg/dL (1.6-2.6); Potassium 3.8 mmol/L (3.5-5.1); Protein, Total 7.9 g/dL (6.4-8.2); Sodium Level 141 mmol/L (136-145); Thyroid Stim Hormone (TSH) 1.46 uIU/mL (0.358-3.74)
== END ==
LOC: LAB.FUTURE 14:03 → BFHLAB 14:50
PROVIDERS: Family Provider Family Medicine; PCP Family Medicine; Visit Provider Family Medicine
DX: E03.9 Hypothyroidism, unspecified (principal); D50.9 Iron deficiency anemia, unspecified; I10 Essential (primary) hypertension; E83.42 Hypomagnesemia; I48.91 Unspecified atrial fibrillation
CPT/HCPCS: 36415; 80053; 82728; 83540; 83735; 84443; 85025

== ENCOUNTER → 2020-01-03 11:29 | Outpatient (CLI) | payer OTHER, MEDICARE, SELFPAY ==
[2018-12-10 14:33] VITALS: BMI 54.2
[2020-01-03 15:42] LABS: AST(SGOT) 17 U/L (15-37); Alanine Aminotransfer ALT/SGPT 19 U/L (13-56); Albumin, Serum 3.3 g/dL (3.2-5.0); Alkaline Phosphatase 71 U/L (45-117); Bilirubin, Direct 0.28 mg/dL (0.00-0.30); Cholesterol 173 mg/dL (200); Globulin 3.9 g/dL (2.2-4.2); High Density Lipoprotein 48 mg/dL; Protein, Total 7.2 g/dL (6.4-8.2); Triglycerides 94 mg/dL; Very Low Density Lipoprotein 19 mg/dL (5-40)
== END ==
PROVIDERS: Nurse Practitioner Family; PCP Family Medicine; Visit Provider Internal Medicine Cardiovascular Disease
DX: E78.5 Hyperlipidemia, unspecified (principal)
CPT/HCPCS: 36415; 80061; 80076

== ENCOUNTER → 2020-01-25 09:39 | Outpatient (CLI) | payer OTHER, MEDICARE, SELFPAY ==
[2020-01-04 07:36] VITALS: BMI 51.5
[2020-01-25 11:48] LABS: Absolute Lymphocyte Count 1.17 X10^3/uL (0.83-4.51); Absolute Neutrophil Count 3.2 X10^3/uL (2.0-7.7); Basophil# 0.04 X10^3/uL; Basophil% 0.8 % (0-1); Hematocrit 39.5 % (37-47); Hemoglobin 12.2 g/dL (12.0-15.0); Lymphocyte # 1.17 X10^3/ul (4.0); Lymphocyte % 23.2 % (19-41); Mean Corp Hgb Conc 30.9 g/dL (32-36); Mean Corpuscular Hgb 27.5 pg (27.0-32.0); Mean Platelet Vol. 10.9 fl (6.2-12.0); Monocyte# 0.41 X10^3/uL; Monocyte% 8.1 % (0-10); NRBC Flagged by Analyzer 0 % (0-5); Neutrophil # 3.22 X10^3/uL (2.7-7.7); Neutrophil % 63.7 % (47-70); Platelet Count 259 K/mm3 (150-450); RBC Distribution Width CV 14.4 % (11.6-14.6); RBC Distribution Width SD 46.8 fl (35.1-43.9); Red Blood Count 4.44 M/mm3 (4.2-5.4); White Blood Count 5.1 K/mm3 (4.4-11.0)
[2020-01-25 12:17] LABS: Anion Gap 4 (5-15); BUN 16 mg/dL (7-18); BUN/Creat Ratio 13.8 RATIO (10-20); Calcium,Total 9.1 mg/dL (8.5-10.1); Chloride 106 mmol/L (98-107); Creatinine, Serum 1.16 mg/dL (0.55-1.02); EST Glomerular Filtration Rate 50 mL/min (>60); Est Glom Filt Rate - Afr Amer 60 mL/min (>60); Glucose 102 mg/dL (74-106); Magnesium 1.8 mg/dL (1.6-2.6); Potassium 3.4 mmol/L (3.5-5.1); Sodium Level 143 mmol/L (136-145); T4 Free Direct 1.21 ng/dL (0.76-1.46); Vitamin D,25 Hydroxy 25.1 ng/mL
== END ==
PROVIDERS: PCP Family Medicine; Visit Provider Family Medicine
DX: I10 Essential (primary) hypertension (principal); E03.9 Hypothyroidism, unspecified; E83.42 Hypomagnesemia; E55.9 Vitamin D deficiency, unspecified
CPT/HCPCS: 36415; 80048; 82306; 83735; 84439; 84443; 85025

== ENCOUNTER 2020-06-08 13:44 | Outpatient (RCR) | payer MEDICARE, OTHER, SELFPAY ==
[2020-01-04 07:36] VITALS: BMI 51.5
[2020-06-08] MEDS: COVID-19 VACC, MRNA(PFIZER)/PF 30 MCG/0.3 ML SYRINGE IM (08:19)
[2020-06-29] MEDS: COVID-19 VACC, MRNA(PFIZER)/PF 30 MCG/0.3 ML SYRINGE IM (07:55)
== END 2020-06-08 23:59 ==
LOC: IMMUN 13:44
PROVIDERS: PCP Family Medicine; Visit Provider Family Medicine
DX: Z23 Encounter for immunization (principal)
CPT/HCPCS: 0001A; 0002A

== ENCOUNTER → 2020-08-31 08:45 | Outpatient (CLI) | payer OTHER, MEDICARE, SELFPAY ==
[2020-08-23 14:59] VITALS: BMI 52.2
--- NOTE | 2020-08-31 08:53 | ECHOD_ITS ---
Reason For Study: PULMONARY HYPERTENSION Procedure This was a 2D Doppler, Color Flow transthoracic echocardiogram. The exam was of adequate technical quality. Exam performed in department. Left Ventricle Normal LV size. Left ventricular systolic function is lower limits of normal. The estimated ejection fraction is 50 %. Unable to assess diastolic dysfunction. No regional wall motion abnormalities noted. Right Ventricle Mildly dilated right ventricle. Normal systolic function. Atria The left atrium is severely enlarged. The right atrium is severely enlarged. No doppler evidence for ASD. Mitral Valve There is no mitral annular calcification. Bileaflet diffuse mitral valve thickening. Mild (1+) mitral valve insufficiency. Tricuspid Valve Normal tricuspid valve. Moderately severe (3+) eccentric tricuspid valve insufficiency. Right ventricular systolic pressure estimated to be 45 mmHg. Aortic Valve Trisinus/trileaflet aortic valve. Normal aortic valve. Trivial aortic valve insufficiency. Pulmonic Valve The pulmonic valve is not well visualized. Great Vessels Normal sized aortic root. Pericardium/Pleural No pericardial effusion. MMode/2D Measurements & Calculations LVIDd: 5.0 cm IVSd: 0.96 cm Ao root diam: 3.1 cm LVIDs: 3.7 cm LVPWd: 0.96 cm FS: 25.1 % LAV(MOD-bp): 81.2 ml LVAd ap4: 31.0 cm2 LVAd ap2: 28.5 cm2 LAV(MOD-bp) Indexed: 34.8 ml/m2 LVLd ap4: 7.7 cm LVLd ap2: 7.5 cm LAV(MOD-sp2): 79.9 ml EDV(MOD-sp4): 103.2 ml EDV(MOD-sp2): 87.7 ml LAV(MOD-sp4): 75.5 ml EDV(sp4-el): 106.3 ml EDV(sp2-el): 91.2 ml LVAs ap4: 20.8 cm2 LVAs ap2: 20.2 cm2 LVLs ap4: 6.4 cm LVLs ap2: 6.7 cm ESV(MOD-sp4): 54.3 ml ESV(MOD-sp2): 49.9 ml ESV(sp4-el): 57.4 ml ESV(sp2-el): 51.9 ml EF(MOD-sp4): 47.4 % EF(MOD-sp2): 43.2 % EF(sp4-el): 46.0 % SV(MOD-sp4): 48.9 ml SV(MOD-sp2): 37.9 ml SV(sp4-el): 48.9 ml LA dimension(2D): 4.6 cm LA A4 area: 25.6 cm2 RA A4 area: 28.4 cm2 Doppler Measurements & Calculations MV E max mehnaz: 130.9 cm/sec Ao V2 max: 151.0 cm/sec LV V1 max: 73.5 cm/sec Ao max P.2 mmHg LV V1 max P.2 mmHg PA V2 max: 105.5 cm/sec TR max mehnaz: 294.4 cm/sec TR max P.8 mmHg ECHO/Echo Complete Interpretation Summary Left ventricular systolic function is lower limits of normal. The estimated ejection fraction is 50 %. Mildly dilated right ventricle. The left atrium is severely enlarged. The right atrium is severely enlarged. Bileaflet diffuse mitral valve thickening. Mild (1+) mitral valve insufficiency. Moderately severe (3+) eccentric tricuspid valve insufficiency. Trivial aortic valve insufficiency. Right ventricular systolic pressure estimated to be 45 mmHg. Unable to assess diastolic dysfunction. Ordering Physician: Brad Barnes Referring Physician: ELEANOR KOCH Performed By: Lynnette Donis RDCS
== END ==
PROVIDERS: PCP Family Medicine; Referring Provider Internal Medicine Cardiovascular Disease; Visit Provider Internal Medicine Cardiovascular Disease
DX: I50.31 Acute diastolic (congestive) heart failure (principal); I07.1 Rheumatic tricuspid insufficiency; I27.21 Secondary pulmonary arterial hypertension
CPT/HCPCS: 93306

== ENCOUNTER → 2021-01-15 | Outpatient (CLI) | payer OTHER, MEDICARE, SELFPAY | END | disposition home or self-care (01) | LOC: LABSPEC 01-16 14:41 | PROVIDERS: PCP Family Medicine; Referring Provider Physician Assistant Surgical; Visit Provider Physician Assistant Surgical | DX: U07.1 COVID-19 (principal) | CPT/HCPCS: 87635; U0005; U0003 ==

== ENCOUNTER → 2021-09-28 | Outpatient (CLI) | payer OTHER, MEDICARE, SELFPAY ==
[2021-09-28 12:41] LABS: Absolute Neutrophil Count 3.1 X10^3/uL (2.0-7.7); Basophil# 0.05 X10^3/uL; Eosinophil# 0.22 X10^3/uL; Eosinophils% 4.4 % (0-5); Hematocrit 35.6 % (37-47); Hemoglobin 10.5 g/dL (12.0-15.0); Lymphocyte % 23.8 % (19-41); Mean Corp Hgb Conc 29.5 g/dL (32-36); Mean Corpuscular Hgb 25.3 pg (27.0-32.0); Mean Corpuscular Volume 85.8 fL (81-99); Mean Platelet Vol. 10.4 fl (6.2-12.0); Monocyte# 0.46 X10^3/uL; Monocyte% 9.1 % (0-10); NRBC Flagged by Analyzer 0 % (0-5); Neutrophil % 61.3 % (47-70); Platelet Count 266 K/mm3 (150-450); RBC Distribution Width CV 19.4 % (11.6-14.6); RBC Distribution Width SD 60.1 fl (35.1-43.9); Red Blood Count 4.15 M/mm3 (4.2-5.4); White Blood Count 5.1 K/mm3 (4.4-11.0)
[2021-09-28 13:07] LABS: Ferritin 9 ng/mL (8-252); Iron 94 ug/dL (50-170)
== END | disposition home or self-care (01) ==
LOC: LAB 11:05
PROVIDERS: PCP Family Medicine; Visit Provider Family Medicine
DX: D50.9 Iron deficiency anemia, unspecified (principal)
CPT/HCPCS: 36415; 82728; 83540; 85025

== ENCOUNTER → 2022-05-14 | Outpatient (CLI) | payer OTHER, MEDICARE, SELFPAY ==
[2022-05-14 12:27] LABS: Absolute Lymphocyte Count 1.34 X10^3/uL (0.83-4.51); Basophil# 0.05 X10^3/uL; Eosinophil# 0.29 X10^3/uL; Eosinophils% 5.6 % (0-5); Hemoglobin 12.3 g/dL (12.0-15.0); Lymphocyte # 1.34 X10^3/ul (0.83-4.51); Lymphocyte % 25.9 % (19-41); Mean Corp Hgb Conc 31.5 g/dL (32-36); Mean Corpuscular Hgb 28.9 pg (27.0-32.0); Mean Corpuscular Volume 91.8 fL (81-99); Mean Platelet Vol. 11.1 fl (6.2-12.0); Monocyte# 0.47 X10^3/uL; Monocyte% 9.1 % (0-10); NRBC Flagged by Analyzer 0 % (0-5); Neutrophil # 3.01 X10^3/uL (2.7-7.7); Platelet Count 244 K/mm3 (150-450); RBC Distribution Width CV 14.5 % (11.6-14.6); RBC Distribution Width SD 47.9 fl (35.1-43.9); Red Blood Count 4.25 M/mm3 (4.2-5.4); White Blood Count 5.2 K/mm3 (4.4-11.0)
[2022-05-14 12:54] LABS: Vitamin D,25 Hydroxy 44.7 ng/mL
[2022-05-14 13:11] LABS: Anion Gap 3 (5-15); BUN 19 mg/dL (7-18); Chloride 108 mmol/L (98-107); Cholesterol 181 mg/dL (200); EST Glomerular Filtration Rate 58 mL/min (>60); Est Glom Filt Rate - Afr Amer 71 mL/min (>60); Glucose 114 mg/dL (74-106); High Density Lipoprotein 51 mg/dL; Potassium 4.4 mmol/L (3.5-5.1); Sodium Level 142 mmol/L (136-145); Thyroid Stim Hormone (TSH) 1.97 uIU/mL (0.358-3.74); Triglycerides 121 mg/dL; Very Low Density Lipoprotein 24 mg/dL (5-40)
== END | disposition home or self-care (01) ==
LOC: BFHLAB 10:45
PROVIDERS: PCP Family Medicine; Visit Provider Family Medicine
DX: I48.91 Unspecified atrial fibrillation (principal); E03.9 Hypothyroidism, unspecified; E55.9 Vitamin D deficiency, unspecified; I10 Essential (primary) hypertension
CPT/HCPCS: 36415; 80048; 80061; 82306; 84443; 85025

== ENCOUNTER → 2022-05-30 | Outpatient (CLI) | payer OTHER, MEDICARE, SELFPAY ==
--- NOTE | 2022-05-30 12:35 | RAD_ITS ---
INDICATION: COUGH EXAMINATION/TECHNIQUE: X-RAY - XR Chest 2 Views COMPARISON: 05/13/2017 FINDINGS: LINES/DEVICES: Stable left atrial appendage clip. LUNGS: No consolidation, edema or effusion. No pneumothorax. MEDIASTINUM AND CARDIOVASCULAR STRUCTURES: Stable cardiomegaly. BONES AND SOFT TISSUES: No acute changes. RAD/Chest PA and Lateral IMPRESSION: Cardiomegaly without radiographic evidence of acute cardiopulmonary disease. Electronically Signed: Tom Chappell MD at 0:26 EST ,
== END | disposition home or self-care (01) ==
LOC: MTRAD 12:34
PROVIDERS: PCP Family Medicine; Referring Provider Family Medicine; Visit Provider Family Medicine
DX: R05.9 Cough, unspecified (principal)
CPT/HCPCS: 71046

== ENCOUNTER → 2023-01-07 | Outpatient (CLI) | payer OTHER, MEDICARE, SELFPAY ==
[2023-01-07 15:29] LABS: Absolute Lymphocyte Count 1.39 X10^3/uL (0.83-4.51); Absolute Neutrophil Count 3.1 X10^3/uL (2.0-7.7); Basophil# 0.06 X10^3/uL; Basophil% 1.2 % (0-1); Eosinophils% 3.8 % (0-5); Hematocrit 37.7 % (37-47); Hemoglobin 11.4 g/dL (12.0-15.0); Lymphocyte # 1.39 X10^3/ul (0.83-4.51); Lymphocyte % 26.7 % (19-41); Mean Corp Hgb Conc 30.2 g/dL (32-36); Mean Corpuscular Hgb 27.1 pg (27.0-32.0); Mean Corpuscular Volume 89.5 fL (81-99); Mean Platelet Vol. 10.7 fl (6.2-12.0); Monocyte# 0.45 X10^3/uL; Monocyte% 8.7 % (0-10); NRBC Flagged by Analyzer 0 % (0-5); Neutrophil # 3.07 X10^3/uL (2.7-7.7); Platelet Count 270 K/mm3 (150-450); RBC Distribution Width CV 14.8 % (11.6-14.6); RBC Distribution Width SD 47.8 fl (35.1-43.9); Red Blood Count 4.21 M/mm3 (4.2-5.4); White Blood Count 5.2 K/mm3 (4.4-11.0)
[2023-01-07 16:27] LABS: Vitamin D,25 Hydroxy 51.2 ng/mL
[2023-01-07 16:30] LABS: ALB/GLOB Ratio 0.8 RATIO (0.9-2.4); AST(SGOT) 17 U/L (15-37); Alanine Aminotransfer ALT/SGPT 20 U/L (13-56); Albumin, Serum 3.3 g/dL (3.2-5.0); Alkaline Phosphatase 70 U/L (45-117); Anion Gap 5 (5-15); BUN 20 mg/dL (7-18); BUN/Creat Ratio 20.3 RATIO (10-20); Calcium,Total 8.7 mg/dL (8.5-10.1); Chloride 106 mmol/L (98-107); Cholesterol 176 mg/dL (200); Creatinine, Serum 0.98 mg/dL (0.55-1.02); EST Glomerular Filtration Rate 59 mL/min (>60); Est Glom Filt Rate - Afr Amer 72 mL/min (>60); Globulin 3.9 g/dL (2.2-4.2); Glucose 102 mg/dL (74-106); High Density Lipoprotein 50 mg/dL; Magnesium 2.2 mg/dL (1.6-2.6); Potassium 3.8 mmol/L (3.5-5.1); Protein, Total 7.2 g/dL (6.4-8.2); Sodium Level 142 mmol/L (136-145); Thyroid Stim Hormone (TSH) 1.68 uIU/mL (0.358-3.74); Triglycerides 139 mg/dL; Very Low Density Lipoprotein 28 mg/dL (5-40)
== END | disposition home or self-care (01) ==
PROVIDERS: PCP Nurse Practitioner Family; Referring Provider Nurse Practitioner Family; Visit Provider Nurse Practitioner Family
DX: I10 Essential (primary) hypertension (principal); I48.91 Unspecified atrial fibrillation; E03.9 Hypothyroidism, unspecified; E83.42 Hypomagnesemia
CPT/HCPCS: 36415; 80053; 80061; 82306; 83735; 84439; 84443; 85025

== ENCOUNTER → 2023-01-13 | Outpatient (CLI) | payer OTHER, MEDICARE, SELFPAY ==
--- NOTE | 2023-01-13 10:24 | BI_ITS ---
MAMMOGRAPHY - BILATERAL SCREENING REASON FOR EXAM: Female, 72 years old. Routine annual screening examination. PERTINENT HISTORY: Grandmother with breast cancer. Remote left excisional breast biopsy. TECHNIQUE: Digital bilateral breast mandeep (3D mammographic acquisition) in the CC and MLO projections. 2-D mediolateral oblique (MLO) and craniocaudad (CC) views of both breasts were obtained. CAD: Full Field Digital Mammography with Computer Added Detection was performed. COMPARISON: Comparison is made with prior study dated February 17, 2019 and December 13, 2015. FINDINGS: Breast Composition: The breasts are almost entirely fatty. There are no dominant masses or suspicious calcifications. Stable small benign appearing bilateral axillary lymph nodes. No other significant abnormalities are identified. There has been no significant change since the prior study. BI/SCRN MAMM (CAD)W/MANDEEP BILAT IMPRESSION: Stable bilateral screening mammogram. Yearly follow-up mammogram recommended. (A) ASSESSMENT CATEGORY: BIRADS Category 2: Benign. A letter regarding these results will be sent to the patient by the facility within 30 days. Approximately 10% of breast cancers are not detected by mammography. A normal mammogram should not delay biopsy of a clinically suspicious abnormality. [id number] Electronically Signed: Michael Odonnell MD at 13:05 EDT ,
== END | disposition home or self-care (01) ==
LOC: OPBI 10:22
PROVIDERS: PCP Nurse Practitioner Family; Referring Provider Nurse Practitioner Family; Visit Provider Nurse Practitioner Family
DX: Z12.31 Encounter for screening mammogram for malignant neoplasm of breast (principal)
CPT/HCPCS: 77063; 77067

== ENCOUNTER → 2024-02-03 | Outpatient (CLI) | payer OTHER, MEDICARE, SELFPAY ==
[2024-02-03 15:18] LABS: Absolute Lymphocyte Count 1.29 X10^3/uL (0.83-4.51); Absolute Neutrophil Count 2.2 X10^3/uL (2.0-7.7); Basophil# 0.06 X10^3/uL; Basophil% 1.5 % (0-1); Eosinophil# 0.17 X10^3/uL; Eosinophils% 4.1 % (0-5); Hematocrit 34.1 % (37-47); Hemoglobin 10.4 g/dL (12.0-15.0); Lymphocyte # 1.29 X10^3/ul (0.83-4.51); Lymphocyte % 31.2 % (19-41); Mean Corp Hgb Conc 30.5 g/dL (32-36); Mean Corpuscular Hgb 25.3 pg (27.0-32.0); Mean Platelet Vol. 10.6 fl (6.2-12.0); Monocyte# 0.43 X10^3/uL; Monocyte% 10.4 % (0-10); NRBC Flagged by Analyzer 0 % (0-5); Neutrophil # 2.16 X10^3/uL (2.7-7.7); Neutrophil % 52.3 % (47-70); Platelet Count 325 K/mm3 (150-450); RBC Distribution Width CV 15.1 % (11.6-14.6); RBC Distribution Width SD 46.3 fl (35.1-43.9); Red Blood Count 4.11 M/mm3 (4.2-5.4); White Blood Count 4.1 K/mm3 (4.4-11.0)
[2024-02-03 15:48] LABS: Vitamin D,25 Hydroxy 49.2 ng/mL
[2024-02-03 16:03] LABS: ALB/GLOB Ratio 0.9 RATIO (0.9-2.4); AST(SGOT) 16 U/L (15-37); Alanine Aminotransfer ALT/SGPT 17 U/L (13-56); Albumin, Serum 3.5 g/dL (3.2-5.0); Alkaline Phosphatase 68 U/L (45-117); Anion Gap 7 (5-15); BUN 25 mg/dL (7-18); BUN/Creat Ratio 18.2 RATIO (10-20); Calcium,Total 9.2 mg/dL (8.5-10.1); Chloride 101 mmol/L (98-107); Cholesterol 199 mg/dL (200); Creatinine, Serum 1.37 mg/dL (0.55-1.02); EST Glomerular Filtration Rate 40 mL/min (>60); Est Glom Filt Rate - Afr Amer 49 mL/min (>60); Globulin 3.7 g/dL (2.2-4.2); Glucose 96 mg/dL (74-106); High Density Lipoprotein 53 mg/dL; Potassium 3.5 mmol/L (3.5-5.1); Protein, Total 7.2 g/dL (6.4-8.2); Sodium Level 138 mmol/L (136-145); T4 Free Direct 1.25 ng/dL (0.76-1.46); Thyroid Stim Hormone (TSH) 0.884 uIU/mL (0.358-3.740); Triglycerides 125 mg/dL; Very Low Density Lipoprotein 25 mg/dL (5-40)
== END | disposition home or self-care (01) ==
LOC: BFHLAB 13:03
PROVIDERS: PCP Family Medicine; Referring Provider Family Medicine; Visit Provider Family Medicine
DX: I10 Essential (primary) hypertension (principal); I48.91 Unspecified atrial fibrillation; E03.9 Hypothyroidism, unspecified
CPT/HCPCS: 36415; 80053; 80061; 82306; 84439; 84443; 85025

== ENCOUNTER 2024-06-21 16:21 | Emergency (ER) | payer OTHER, MEDICARE, SELFPAY ==
[2024-06-21 16:22] VITALS: BP 122/62; PULSE 84; RESP 16; TEMP 36.1; O2SAT 98; BMI 47.9
--- NOTE | 2024-06-21 16:30 | RAD_ITS ---
PROCEDURE: ELBOW MIN 3 VIEWS (RAD), 06/21/2024 REASON FOR EXAM: INJURY TECHNIQUE: AP, lateral, and oblique views of the left elbow were obtained. COMPARISON: None FINDINGS: Fracture/dislocation: No visible acute appearing displaced fracture was identified. Few well corticated bone fragments along the anterior aspect of the coronoid process may be degenerative or reflect sequela of remote trauma. Joint space(s): Relatively preserved. Soft tissues: Few calcified likely phleboliths. Mild soft tissue swelling along the posterior aspect of the olecranon. Foreign bodies: None visible. Bone mineralization: Demineralization RAD/Elbow min 3 Views IMPRESSION: 1. Demineralization without visible acute displaced fracture. 2. Mild soft tissue swelling along the posterior olecranon may reflect contusio n. 3. Additional description as above. Reading Location: [id number]
--- NOTE | 2024-06-21 16:30 | RAD_ITS ---
PROCEDURE: FOREARM 2 VIEWS 06/21/2024 REASON FOR EXAM: INJURY TECHNIQUE: Two-view left forearm COMPARISON: None. FINDINGS: Demineralized bones. There are couple of soft tissue calcifications No evidence of acute forearm fracture. RAD/Forearm 2 Views IMPRESSION: No findings of acute left forearm fracture. Demineralization does limit sensit ivity. Reading Location: [id number]
[2024-06-21 19:26] VITALS: BP 145/78; PULSE 92; RESP 16; TEMP 36.6; O2SAT 100
--- NOTE | 2024-06-21 19:37 | EX.ED.UPPERE ---
HPI History of Present Illness Chief Complaint: Upper Extremity Injury Informant: patient and spouse/S.O. Narrative Narrative: Mechanical fall going down steps at 2:30 PM. Hit her left elbow left leg. No head injuries. On Xarelto for paroxysmal A-fib. No headache neck pain chest pains. Able to ambulate. [facility] Medical History Tricuspid valve insufficiency Essential hypertension Hyperlipidemia Secondary pulmonary arterial hypertension Persistent atrial fibrillation Obstructive sleep apnea Acute diastolic (congestive) heart failure Hypokalemia Hypothyroidism Degenerative joint disease Anemia Morbid obesity with BMI of 45.0-49.9, adult Foley esophagus Hiatal hernia GERD (gastroesophageal reflux disease) Home Medications ?Medication ?Instructions ?Recorded ?Last Taken ?Type fluoxetine 20 mg capsule 20 mg PO DAILY mental health 04/21/13 11/08/17 History pantoprazole 40 mg tablet,delayed 40 mg PO BID 05/30/17 11/08/17 History release cholecalciferol (vitamin D3) 125 125 mcg PO DAILY 12/25/21 Unknown History mcg (5,000 unit) tablet cyanocobalamin (vitamin B-12) 1,000 mcg PO DAILY 12/25/21 Unknown History 1,000 mcg tablet (Vitamin B-12) insta flex PO 12/25/21 Unknown History iron,carbonyl 100 mg-vitamin C 250 1 tab PO DAILY 12/25/21 Unknown History mg tablet magnesium oxide 500 mg PO DAILY 12/25/21 Unknown History furosemide 40 mg tablet (Lasix) 40 mg PO QDAY #90 tabs 05/06/23 Unknown Rx rivaroxaban 20 mg tablet (Xarelto) See Rx Instructions .Route 05/06/23 Unknown Rx .COMPLEX #90 tabs acetaminophen 500 mg tablet 1,000 mg PO ONCE PRN 08/19/23 Unknown History levothyroxine 75 mcg tablet 75 mcg PO QDAY 08/19/23 Unknown History zjgsqyhb-[id number]-bwmir acid 200 tab PO 08/19/23 Unknown History mcg-collagen, hydrolyzed 25 mg chew tablet (Women's Multivitamin with Collagen) tirzepatide 2.5 mg/0.5 mL 2.5 mg subcut QWEEK 08/19/23 Unknown History subcutaneous pen injector carvedilol 12.5 mg tablet 12.5 mg PO BID #180 tabs 05/28/24 Unknown Rx potassium chloride 20 mEq 60 meq (3 x 20 mEq) PO BID 02/26/24 Unknown Rx tablet,extended release supplement 90 days #540 tabs metolazone 2.5 mg tablet See Rx Instructions .Route 03/30/24 Unknown Rx .COMPLEX #12 tabs amlodipine 2.5 mg tablet 2.5 mg PO DAILY #90 TABLETS 04/27/24 Unknown Rx Allergy/AdvReac Type Severity Reaction Status Date / Time Latex, Natural Rubber AdvReac Intermediate UNKNOWN Verified 08/19/23 10:32 olmesartan (From Benicar) AdvReac Itching Verified 08/19/23 10:32 Family History Mother CAD (coronary artery disease) <65 Father CVA (cerebral vascular accident) Surgical History Status post ligation of left atrial appendage (~02/25/17) History of radiofrequency ablation procedure for cardiac arrhythmia (~02/25/17) History of left heart catheterization History of cardioversion (03/11/18) Social History Smoking Status: Never smoker alcohol intake: never substance use type: does not use diet: Weight Watchers what type of physical activity do you participate in: none seatbelt use: always do you feel safe at home: Yes ROS ROS ED Constitutional Constitutional ED: Denies chills, fever(s) or sweats ENT ENT ED: Denies sore throat Cardiovascular Cardiovascular: Denies chest pain, leg edema, palpitations or racing heartbeat Respiratory/Chest Respiratory/Chest: Denies cough, dyspnea or dyspnea on exertion Gastrointestinal Gastrointestinal: Denies abdominal pain, diarrhea, nausea or vomiting Genitourinary Genitourinary ED: Denies dysuria, hematuria or urinary frequency Musculoskeletal Musculoskeletal: Reports extremity pain and other Details: Left elbow and forearm pain, left leg contusion ; Denies back pain or neck pain Integumentary Denies rash or wounds Neurologic Neurologic: Denies headache(s), paresthesias or weakness EXAM Physical Exam Const Vital Signs: 06/21/24 16:22 06/21/24 19:26 Temperature 96.9 F L 97.9 F Temperature Source Temporal Pulse Rate 84 92 Respiratory Rate 16 16 Blood Pressure 122/62 H 145/78 H Blood Pressure Mean 82 100 Pulse Ox 98 100 Oxygen Delivery Method Room Air Positive well nourished and well developed Constitutional Narrative: GCS 15. General Appearance ED: well developed and NAD HEENT Reports moist mucous membranes normocephalic and atraumatic Eyes General Eye ED: Yes normal appearance of both eyes Neck full ROM Chest Wall inspection of chest normal and palpation of chest normal Chest: Negative for tenderness Resp normal respiratory effort and normal air movement Effort and Inspection: symmetric chest movement; Negative for respiratory distress Cardio regular rate, regular rhythm and no murmurs Peripheral Pulses: pulses 2+ throughout GI normal to inspection, nondistended, normoactive bowel sounds and non-tender Palpation: Negative for guarding or rebound tenderness present Extremity Extremity Narrative: Left upper extremity: No shoulder pain mild pain olecranon there is mild pain at the proximal forearm. No pain with full extension of the elbow pronation supination without pain. No shoulder tenderness no wrist tenderness. Left lower extremity: No bony tenderness there is contusion noted upper leg with skin intact soft compartments. Neuro vas intact distally. General Extremety ED: Yes tenderness; Negative for edema General Extremity: Negative for edema Neuro oriented x3 and no sensory deficits noted Sensorium / Orientation: awake and alert Skin no rashes or lesions noted and no wounds MDM MDM MDM Narrative Medical decision making narrative: Interventions / MDM: Differential diagnosis: Soft tissue contusion Diagnosis considered but do not suspect: Fractures however x-ray negative. My EKG interpretation: N/A Imaging independently reviewed and interpreted by myself: Left elbow 3 views: No fracture or dislocation noted. Left forearm 2 views: No fracture noted. Also read by radiology. External documents reviewed: N/A Test considered but not ordered:N/A ED course: Patient mechanical fall with no head injuries. On Xarelto. Left leg contusion. Left elbow injury. Nursing protocol obtain left elbow and left forearm x-rays per myself and read by radiology no fractures. Full range of motion of the elbow. Discussed soft tissue contusion declines Logan wrap. She is able to ambulate offered x-ray of left leg however she declines at also at this time as she is able to ambulate. She will use Tylenol as needed ice and elevation. All questions were answered. Re-evaluation: stable Disposition discussed with patient/family/significant other: Patient and spouse Case discussed with consulting clinician: N/A This note was generated with [employer] dictation software. It may contain incorrect words, spelling, and punctuation that were not noted in checking the note before signing. Radiography Diagnostic Testing: Clinical Impression(s) from Imaging Studies Elbow X-Ray 06/21/24 16:30 IMPRESSION: 1. Demineralization without visible acute displaced fracture. 2. Mild soft tissue swelling along the posterior olecranon may reflect contusion. 3. Additional description as above. Reading Location: [facility] Forearm X-Ray 06/21/24 16:30 IMPRESSION: No findings of acute left forearm fracture. Demineralization does limit sensitivity. Reading Location: [facility] Discharge Plan Triage Chief Complaint: Upper Extremity Injury ED Provider: Ralf Mckee Dx/Rx/DC Orders Clinical Impression: Contusion of forearm, left, Contusion of left leg, Chronic anticoagulation Instructions: ED Soft Tissue Contusion Prescriptions: No Action pantoprazole 40 mg tablet,delayed release (DR/EC) 40 mg PO BID magnesium oxide 500 mg tablet 500 mg PO DAILY cholecalciferol (vitamin D3) 125 mcg (5,000 unit) tablet 125 mcg PO DAILY cyanocobalamin (vitamin B-12) [Vitamin B-12] 1,000 mcg tablet 1,000 mcg PO DAILY iron,carbonyl-vitamin C 100-250 mg tablet 1 tab PO DAILY insta flex PO levothyroxine 75 mcg tablet 75 mcg PO QDAY tirzepatide 2.5 mg/0.5 mL pen injector 2.5 mg subcut QWEEK Women's Multivitamin Collagen 200 mcg- 25 mg tablet,chewable PO acetaminophen 500 mg tablet 1,000 mg PO ONCE PRN fluoxetine 20 MG capsule 20 mg PO DAILY Patient Comments: MOOD Xarelto 20 mg tablet See Rx Instructions .ROUTE .COMPLEX Qty: 90 3RF Dose Instruction: TAKE 1 TABLET BY MOUTH EVERY DAY AT BEDTIME FOR BLOOD THINNER Rx Instructions: TAKE 1 TABLET BY MOUTH EVERY DAY AT BEDTIME FOR BLOOD THINNER furosemide [Lasix] 40 mg tablet 40 mg PO QDAY Qty: 90 3RF carvedilol 12.5 mg tablet 12.5 mg PO BID Qty: 180 3RF potassium chloride 20 mEq tablet extended release 60 meq PO BID 90 Days Qty: 540 3RF metolazone 2.5 mg tablet See Rx Instructions .ROUTE .COMPLEX Qty: 12 4RF Dose Instruction: TAKE 1 TABLET BY MOUTH EVERY WEEK ON FRIDAY Rx Instructions: TAKE 1 TABLET BY MOUTH EVERY WEEK ON FRIDAY amlodipine 2.5 mg tablet 2.5 mg PO DAILY Qty: 90 3RF Primary Care Provider: Salma De Los Santos Referrals: Salma De Los Santos MD [Primary Care Provider] - Activity Restrictions/Additional Instructions: X-ray left elbow and forearm negative. Use Tylenol every 6 hours as needed. Ice and elevate. Print Language: Sami Disposition Disposition: Home, Self Care Discharge Date/Time: 06/21/24 19:37
== END 2024-06-21 19:37 | disposition home or self-care (01) ==
PROVIDERS: Emergency Provider Emergency Medicine; PCP Family Medicine; Visit Provider Emergency Medicine
DX: S80.12XA Contusion of left lower leg, initial encounter (principal); I11.0 Hypertensive heart disease with heart failure; I50.32 Chronic diastolic (congestive) heart failure; I48.0 Paroxysmal atrial fibrillation; S50.12XA Contusion of left forearm, initial encounter; S59.902A Unspecified injury of left elbow, initial encounter; W10.9XXA Fall (on) (from) unspecified stairs and steps, initial encounter; E78.5 Hyperlipidemia, unspecified; E03.9 Hypothyroidism, unspecified; Z79.01 Long term (current) use of anticoagulants; Z79.890 Hormone replacement therapy; Z79.899 Other long term (current) drug therapy
CPT/HCPCS: 73080; 73090; 99282

== ENCOUNTER → 2024-07-08 | Outpatient (CLI) | payer OTHER, MEDICARE, SELFPAY ==
[2024-07-08 18:01] LABS: Absolute Lymphocyte Count 1.55 X10^3/uL (0.83-4.51); Absolute Neutrophil Count 3.8 X10^3/uL (2.0-7.7); Basophil# 0.05 X10^3/uL; Basophil% 0.8 % (0-1); Eosinophil# 0.17 X10^3/uL; Eosinophils% 2.8 % (0-5); Hematocrit 34.7 % (37-47); Hemoglobin 10.9 g/dL (12.0-15.0); Lymphocyte # 1.55 X10^3/ul (0.83-4.51); Lymphocyte % 25.5 % (19-41); Mean Corp Hgb Conc 31.4 g/dL (32-36); Mean Corpuscular Hgb 29.7 pg (27.0-32.0); Mean Corpuscular Volume 94.6 fL (81-99); Mean Platelet Vol. 9.9 fl (6.2-12.0); Monocyte# 0.52 X10^3/uL; Monocyte% 8.6 % (0-10); NRBC Flagged by Analyzer 0 % (0-5); Neutrophil # 3.75 X10^3/uL (2.7-7.7); Neutrophil % 61.8 % (47-70); Platelet Count 337 K/mm3 (150-450); RBC Distribution Width CV 14.7 % (11.6-14.6); Red Blood Count 3.67 M/mm3 (4.2-5.4); White Blood Count 6.1 K/mm3 (4.4-11.0)
[2024-07-08 19:40] LABS: Iron Binding Capacity,Total 360 ug/dL (250-450)
[2024-07-08 19:43] LABS: Iron 30 ug/dL (50-170); Iron Binding Capacity,Unsat 330 ug/dL (228-428); PERCENT IRON SATURATION 8.3 % (13-59)
[2024-07-08 20:00] LABS: ALB/GLOB Ratio 1.3 RATIO (0.9-2.4); AST(SGOT) 17 U/L (<=31); Alanine Aminotransfer ALT/SGPT 8 U/L (<=34); Albumin, Serum 3.9 g/dL (3.4-4.8); Alkaline Phosphatase 64 U/L (35-104); Anion Gap 14 (5-15); BUN 25 mg/dL (4-19); BUN/Creat Ratio 23.3 RATIO (10-20); Calcium,Total 9.3 mg/dL (7.6-11.0); Carbon Dioxide 22.3 mmol/L (21.0-32.0); Chloride 104 mmol/L (98-108); Creatinine, Serum 1.09 mg/dL (0.70-1.20); EST Glomerular Filtration Rate 54 (>60); Ferritin 52 ng/mL (22-378); Globulin 3.1 g/dL (2.2-4.2); Glucose 113 mg/dL (70-99); Potassium 4.3 mmol/L (3.3-5.1); Sodium Level 140 mmol/L (133-145); Total Bilirubin 0.43 mg/dL (0.00-1.30)
== END | disposition home or self-care (01) ==
LOC: BFHLAB 15:20
PROVIDERS: PCP Family Medicine; Visit Provider Family Medicine
DX: N18.31 Chronic kidney disease, stage 3a (principal); D64.9 Anemia, unspecified
CPT/HCPCS: 36415; 80053; 82728; 83540; 83550; 85025

== ENCOUNTER → 2025-02-07 | Outpatient (CLI) | payer OTHER, MEDICARE, SELFPAY ==
[2025-02-07 12:49] LABS: Hematocrit 41.4 % (37-47); Hemoglobin 13.2 g/dL (12.0-15.0); Immature Granulocytes Count 0.040 X10^3/uL (0.0-0.0); Mean Corp Hgb Conc 31.9 g/dL (32-36); Mean Corpuscular Volume 90.8 fL (81-99); Mean Platelet Vol. 10.8 fl (6.2-12.0); NRBC Flagged by Analyzer 0 % (0-5); Platelet Count 272 K/mm3 (150-450); RBC Distribution Width CV 14.0 % (11.6-14.6); RBC Distribution Width SD 46.5 fl (35.1-43.9); Red Blood Count 4.56 M/mm3 (4.2-5.4); White Blood Count 8.9 K/mm3 (4.4-11.0)
[2025-02-07 13:29] LABS: AST(SGOT) 18 U/L (<=31); Alanine Aminotransfer ALT/SGPT 13 U/L (<=34); Albumin, Serum 4.0 g/dL (3.4-4.8); Alkaline Phosphatase 62 U/L (35-104); Anion Gap 8 (5-15); BUN 28 mg/dL (4-19); BUN/Creat Ratio 24.3 RATIO (10-20); Calcium,Total 9.6 mg/dL (7.6-11.0); Carbon Dioxide 29.9 mmol/L (21.0-32.0); Chloride 104 mmol/L (98-108); Cholesterol 190 mg/dL (<=200); Globulin 3.3 g/dL (2.2-4.2); Glucose 98 mg/dL (70-99); Low Density Lipoprotein Calc. 119 mg/dL; Potassium 4.1 mmol/L (3.3-5.1); Triglycerides 113 mg/dL; Very Low Density Lipoprotein 23 mg/dL (5-40); Vitamin D,25 Hydroxy 57.8 ng/mL (30-100); cholesterol:hdl ratio screen 3.76
== END | disposition home or self-care (01) ==
PROVIDERS: PCP Family Medicine; Visit Provider Family Medicine
DX: I10 Essential (primary) hypertension (principal); I48.91 Unspecified atrial fibrillation; E03.9 Hypothyroidism, unspecified
CPT/HCPCS: 36415; 80053; 80061; 82306; 84439; 84443; 85025